=== PATIENT | male | born 1955 | race Caucasian/White ===

== ENCOUNTER 2019-06-23 12:01 | Outpatient (CLI) | payer OTHER, SELFPAY ==
[2019-06-23 16:03] LABS: Iron 108 ug/dL (49-181)
[2019-06-23 16:12] LABS: Percent Iron Saturation 31 % (20-50)
== END 2019-06-23 12:02 | disposition home or self-care (01) ==
LOC: ANHLAB 12:03
PROVIDERS: PCP Internal Medicine; Visit Provider Internal Medicine Hematology & Oncology
DX: E83.110 Hereditary hemochromatosis (principal)
CPT/HCPCS: 36415; 82728; 83540; 83550

== ENCOUNTER 2019-11-25 11:13 | Outpatient (CLI) | payer OTHER, SELFPAY ==
[2019-11-25 11:50] LABS: Hematocrit 44.3 % (42.0-52.0); Mean Corpuscular HGB Conc 33.9 g/dl (32-36); Mean Corpuscular Volume 94.5 fl (80-100); Mean Platelet Volume 10.9 fl (7.4-10.4); Platelet Count Result 158 k/mm3 (150-375); Red Blood Count 4.69 M/mm3 (4.6-6.20); Red Cell Distribution Width 12.5 % (11.5-14.5); White Blood Count 5.4 K/mm3 (4.5-10.0)
[2019-11-25 12:04] LABS: Alanine Aminotransferase 19 U/L (4-50); Albumin Level 4.6 g/dL (3.5-5.1); Alkaline Phosphatase 67 U/L (38-126); Aspartate Amino Transferase 26 U/L (17-59); Bilirubin,Total 0.6 mg/dL (0.2-1.3); Blood Urea Nitrogen 14 mg/dL (9-20); Calcium 9.2 mg/dL (8.4-10.2); Carbon Dioxide 31 mmol/L (22-30); Chloride 98 mmol/L (98-107); Cholesterol 147 mg/dL (0-200); Estimated Glomerular Filt Rate > 60; Glucose 104 mg/dL (75-110); HDL Direct 46 mg/dL; Potassium 4.5 mmol/L (3.4-5.0); Sodium 137 mmol/L (137-145); Triglycerides 137 mg/dL (<150)
[2019-11-25 12:14] LABS: LDL Cholesterol Direct 32 mg/dL
[2019-11-25 12:27] LABS: Iron 177 ug/dL (49-181)
[2019-11-25 12:33] LABS: Prostate Specific Antigen 0.6 ng/mL (< OR = 4.0)
[2019-11-25 12:36] LABS: Percent Iron Saturation 51 % (20-50)
[2019-11-29 15:07] LABS: Testosterone Free 50.3 pg/mL (35.0-155.0); Testosterone Total 419 ng/dL (250-1100)
== END 2019-11-25 11:14 | disposition home or self-care (01) ==
PROVIDERS: PCP Internal Medicine; Visit Provider Nurse Practitioner
DX: E34.9 Endocrine disorder, unspecified (principal); E78.5 Hyperlipidemia, unspecified; D50.9 Iron deficiency anemia, unspecified; Z12.5 Encounter for screening for malignant neoplasm of prostate
CPT/HCPCS: 36415; 80053; 80061; 83540; 83550; 84153; 84402; 84403; 85027

== ENCOUNTER 2020-03-16 08:56 | Outpatient (CLI) | payer OTHER, SELFPAY ==
[2020-03-16 09:13] LABS: Basophils Percent Auto 0.7 % (0.2-1.2); Eosinophils Absolute Auto 0.2 K/mm3 (0-0.3); Eosinophils Percent Auto 2.7 % (0-4.4); Hematocrit 41.7 % (42.0-52.0); Hemoglobin 14.1 g/dL (14.0-18.0); Immature Granulocyte Absolute 0.03 K/mm3 (0.00-0.031); Immature Granulocyte Percent A 0.5 % (0-0.5); Lymphocytes Absolute Auto 1.58 K/mm3 (0.9-3.2); Lymphocytes Percent Auto 28.3 % (18.3-44.2); Mean Corpuscular HGB Conc 33.8 g/dl (32-36); Mean Corpuscular Hemoglobin 31.3 pg (26-34); Mean Corpuscular Volume 92.7 fl (80-100); Mean Platelet Volume 10.5 fl (7.4-10.4); Monocytes Absolute Auto 0.8 K/mm3 (0.1-0.6); Neutrophils Percent Auto 53.8 % (45.5-73.1); Platelet Count Result 155 k/mm3 (150-375); Red Cell Distribution Width 12.4 % (11.5-14.5); White Blood Count 5.6 K/mm3 (4.5-10.0)
[2020-03-16 11:40] LABS: Iron 156 ug/dL (49-181)
[2020-03-16 11:44] LABS: Alanine Aminotransferase 18 U/L (4-50); Albumin Level 4.2 g/dL (3.5-5.1); Alkaline Phosphatase 70 U/L (38-126); Anion Gap 6 mmol/L (8-16); Aspartate Amino Transferase 27 U/L (17-59); Bilirubin,Total 0.7 mg/dL (0.2-1.3); Blood Urea Nitrogen 12 mg/dL (9-20); Calcium 9.4 mg/dL (8.4-10.2); Carbon Dioxide 32 mmol/L (22-30); Chloride 101 mmol/L (98-107); Estimated Glomerular Filt Rate > 60; Glucose 100 mg/dL (75-110); Potassium 4.3 mmol/L (3.4-5.0); Sodium 139 mmol/L (137-145)
[2020-03-16 11:49] LABS: Percent Iron Saturation 44 % (20-50)
== END 2020-03-16 08:57 | disposition home or self-care (01) ==
LOC: ANHLAB 08:58
PROVIDERS: PCP Internal Medicine; Visit Provider Internal Medicine Hematology & Oncology
DX: E83.110 Hereditary hemochromatosis (principal)
CPT/HCPCS: 36415; 80053; 82728; 83540; 83550; 85025

== ENCOUNTER 2020-05-22 10:00 | Outpatient (CLI) | payer OTHER, SELFPAY ==
[2020-05-22 10:57] LABS: Anion Gap 7 mmol/L (8-16); Blood Urea Nitrogen 15 mg/dL (9-20); Carbon Dioxide 32 mmol/L (22-30); Chloride 100 mmol/L (98-107); Estimated Glomerular Filt Rate > 60; Glucose 99 mg/dL (75-110); Potassium 4.1 mmol/L (3.4-5.0); Sodium 139 mmol/L (137-145)
[2020-05-25 11:09] LABS: Testosterone Total 502 ng/dL (250-1100)
== END 2020-05-22 10:01 | disposition home or self-care (01) ==
PROVIDERS: PCP Internal Medicine; Visit Provider Internal Medicine
DX: I10 Essential (primary) hypertension (principal); E29.1 Testicular hypofunction
CPT/HCPCS: 36415; 80048; 84403

== ENCOUNTER 2020-07-27 10:48 | Outpatient (CLI) | payer OTHER, SELFPAY ==
[2020-07-27 11:38] LABS: Alanine Aminotransferase 17 U/L (4-50); Albumin Level 4.2 g/dL (3.5-5.1); Alkaline Phosphatase 57 U/L (38-126); Anion Gap 1 mmol/L (8-16); Aspartate Amino Transferase 27 U/L (17-59); Bilirubin,Total 0.7 mg/dL (0.2-1.3); Blood Urea Nitrogen 10 mg/dL (9-20); Calcium 9.1 mg/dL (8.4-10.2); Carbon Dioxide 35 mmol/L (22-30); Chloride 103 mmol/L (98-107); Cholesterol 138 mg/dL (0-200); Estimated Glomerular Filt Rate > 60; Glucose 93 mg/dL (75-110); HDL Direct 48 mg/dL; Potassium 4.2 mmol/L (3.4-5.0); Sodium 139 mmol/L (137-145); Triglycerides 138 mg/dL (<150)
[2020-07-27 11:49] LABS: LDL Cholesterol Direct 32 mg/dL
[2020-07-27 12:08] LABS: Prostate Specific Antigen 0.6 ng/mL (< OR = 4.0)
[2020-07-31 11:04] LABS: Testosterone Free 54.4 pg/mL (46.0-224.0); Testosterone Total 583 ng/dL (250-1100)
[2020-07-31 14:45] LABS: Testosterone Free 64.9 pg/mL (35.0-155.0); Testosterone Total 519 ng/dL (250-1100)
== END 2020-07-27 10:49 | disposition home or self-care (01) ==
LOC: ANHLAB 10:51
PROVIDERS: PCP Internal Medicine; Visit Provider Nurse Practitioner
DX: E29.1 Testicular hypofunction (principal); E78.2 Mixed hyperlipidemia; F32.9 Major depressive disorder, single episode, unspecified; E34.9 Endocrine disorder, unspecified; Z12.5 Encounter for screening for malignant neoplasm of prostate
CPT/HCPCS: 36415; 80053; 80061; 84153; 84402; 84403; 84443; G0103

== ENCOUNTER 2020-07-29 11:34 | Outpatient (CLI) | payer OTHER, SELFPAY | END 2020-07-29 11:35 | disposition home or self-care (01) | PROVIDERS: PCP Internal Medicine; Visit Provider Internal Medicine | DX: R19.7 Diarrhea, unspecified (principal) | CPT/HCPCS: 87045; 87046; 87324; 87427 ==

== ENCOUNTER 2020-09-13 10:26 | Outpatient (CLI) | payer OTHER, SELFPAY ==
[2020-09-13 10:40] LABS: Basophils Percent Auto 0.6 % (0.2-1.2); Eosinophils Absolute Auto 0.2 K/mm3 (0-0.3); Eosinophils Percent Auto 3.1 % (0-4.4); Hematocrit 42.8 % (42.0-52.0); Hemoglobin 14.2 g/dL (14.0-18.0); Immature Granulocyte Absolute 0.03 K/mm3 (0.00-0.031); Immature Granulocyte Percent A 0.6 % (0-0.5); Lymphocytes Absolute Auto 1.41 K/mm3 (0.9-3.2); Lymphocytes Percent Auto 27.6 % (18.3-44.2); Mean Corpuscular HGB Conc 33.2 g/dl (32-36); Mean Corpuscular Hemoglobin 31.4 pg (26-34); Mean Corpuscular Volume 94.7 fl (80-100); Mean Platelet Volume 10.8 fl (7.4-10.4); Monocytes Absolute Auto 0.7 K/mm3 (0.1-0.6); Monocytes Percent Auto 13.3 % (2.6-8.5); Neutrophils Absolute Auto 2.8 K/mm3 (1.3-6.7); Neutrophils Percent Auto 54.8 % (45.5-73.1); Platelet Count Result 158 k/mm3 (150-375); Red Blood Count 4.52 M/mm3 (4.6-6.20); Red Cell Distribution Width 12.6 % (11.5-14.5); White Blood Count 5.1 K/mm3 (4.5-10.0)
[2020-09-13 16:37] LABS: Iron 128 ug/dL (49-181)
[2020-09-13 16:38] LABS: Alanine Aminotransferase 18 U/L (4-50); Albumin Level 4.5 g/dL (3.5-5.1); Alkaline Phosphatase 66 U/L (38-126); Anion Gap 5 mmol/L (8-16); Aspartate Amino Transferase 26 U/L (17-59); Bilirubin,Total 0.5 mg/dL (0.2-1.3); Blood Urea Nitrogen 13 mg/dL (9-20); Calcium 9.1 mg/dL (8.4-10.2); Carbon Dioxide 31 mmol/L (22-30); Chloride 102 mmol/L (98-107); Estimated Glomerular Filt Rate > 60; Glucose 104 mg/dL (75-110); Potassium 4.4 mmol/L (3.4-5.0); Sodium 138 mmol/L (137-145)
[2020-09-13 16:51] LABS: Percent Iron Saturation 35 % (20-50)
== END 2020-09-13 10:27 | disposition home or self-care (01) ==
LOC: ANHLAB 10:28
PROVIDERS: PCP Internal Medicine; Visit Provider Internal Medicine Hematology & Oncology
DX: E83.110 Hereditary hemochromatosis (principal)
CPT/HCPCS: 36415; 80053; 82728; 83540; 83550; 85025

== ENCOUNTER 2021-01-15 10:42 | Outpatient (CLI) | payer OTHER, SELFPAY ==
[2021-01-15 11:40] LABS: Anion Gap 4 mmol/L (8-16); Blood Urea Nitrogen 13 mg/dL (9-20); Calcium 8.7 mg/dL (8.4-10.2); Carbon Dioxide 29 mmol/L (22-30); Chloride 104 mmol/L (98-107); Cholesterol 132 mg/dL (0-200); Estimated Glomerular Filt Rate > 60; Glucose 96 mg/dL (65-110); HDL Direct 52 mg/dL; Potassium 4.3 mmol/L (3.4-5.0); Sodium 137 mmol/L (137-145); Triglycerides 73 mg/dL (<150)
[2021-01-15 11:52] LABS: LDL Cholesterol Direct 30 mg/dL
[2021-01-19 11:01] LABS: Testosterone Total 500 ng/dL (250-1100)
== END 2021-01-15 10:43 | disposition home or self-care (01) ==
PROVIDERS: PCP Internal Medicine; Visit Provider Internal Medicine
DX: E29.1 Testicular hypofunction (principal); I10 Essential (primary) hypertension
CPT/HCPCS: 36415; 80048; 80061; 84403

== ENCOUNTER → 2021-03-30 04:18 | Outpatient (CLI) | payer OTHER, SELFPAY ==
[2021-03-30 17:24] LABS: SARS-CoV-2 RNA PCR Negative
== END ==
PROVIDERS: PCP Internal Medicine; Visit Provider Nurse Practitioner
DX: R68.89 Other general symptoms and signs (principal); Z20.822 Contact with and (suspected) exposure to COVID-19
CPT/HCPCS: C9803; U0003; U0005

== ENCOUNTER 2021-08-24 11:53 | Outpatient (CLI) | payer OTHER, SELFPAY ==
[2021-08-24 12:13] LABS: Basophils Percent Auto 0.5 % (0.2-1.2); Eosinophils Absolute Auto 0.2 K/mm3 (0-0.3); Eosinophils Percent Auto 2.6 % (0-4.4); Hematocrit 44.4 % (42.0-52.0); Hemoglobin 14.6 g/dL (14.0-18.0); Immature Granulocyte Absolute 0.04 K/mm3 (0.00-0.031); Immature Granulocyte Percent A 0.7 % (0-0.5); Lymphocytes Absolute Auto 1.11 K/mm3 (0.9-3.2); Lymphocytes Percent Auto 18.1 % (18.3-44.2); Mean Corpuscular HGB Conc 32.9 g/dl (32-36); Mean Corpuscular Hemoglobin 31.6 pg (26-34); Mean Corpuscular Volume 96.1 fl (80-100); Mean Platelet Volume 10.9 fl (7.4-10.4); Monocytes Absolute Auto 0.8 K/mm3 (0.1-0.6); Monocytes Percent Auto 12.4 % (2.6-8.5); Neutrophils Percent Auto 65.7 % (45.5-73.1); Platelet Count Result 160 k/mm3 (150-375); Red Blood Count 4.62 M/mm3 (4.6-6.20); Red Cell Distribution Width 12.7 % (11.5-14.5); White Blood Count 6.1 K/mm3 (4.5-10.0)
[2021-08-24 12:26] LABS: Alanine Aminotransferase 19 U/L (4-50); Albumin Level 4.5 g/dL (3.5-5.1); Alkaline Phosphatase 72 U/L (38-126); Anion Gap 6 mmol/L (8-16); Aspartate Amino Transferase 34 U/L (17-59); Bilirubin,Total 0.7 mg/dL (0.2-1.3); Blood Urea Nitrogen 16 mg/dL (9-20); Calcium 8.9 mg/dL (8.4-10.2); Carbon Dioxide 31 mmol/L (22-30); Chloride 103 mmol/L (98-107); Estimated Glomerular Filt Rate > 60; Glucose 99 mg/dL (65-110); Potassium 4.3 mmol/L (3.4-5.0); Sodium 140 mmol/L (137-145)
[2021-08-24 12:56] LABS: Prostate Specific Antigen 0.7 ng/mL (< OR = 4.0)
[2021-08-29 01:11] LABS: Testosterone Total 598 ng/dL (250-1100)
== END 2021-08-24 11:54 | disposition home or self-care (01) ==
LOC: ANHLAB 11:54
PROVIDERS: PCP Internal Medicine; Visit Provider Internal Medicine
DX: E29.1 Testicular hypofunction (principal); I10 Essential (primary) hypertension; Z12.5 Encounter for screening for malignant neoplasm of prostate; D50.9 Iron deficiency anemia, unspecified
CPT/HCPCS: 36415; 80053; 82728; 84153; 84403; 85025; G0103

== ENCOUNTER 2021-09-14 10:32 | Outpatient (CLI) | payer OTHER, SELFPAY ==
[2021-09-14 11:04] LABS: Basophils Percent Auto 0.6 % (0.2-1.2); Eosinophils Absolute Auto 0.2 K/mm3 (0-0.3); Eosinophils Percent Auto 3.2 % (0-4.4); Hematocrit 43.4 % (42.0-52.0); Hemoglobin 13.9 g/dL (14.0-18.0); Immature Granulocyte Absolute 0.03 K/mm3 (0.00-0.031); Immature Granulocyte Percent A 0.6 % (0-0.5); Lymphocytes Absolute Auto 1.23 K/mm3 (0.9-3.2); Lymphocytes Percent Auto 23.3 % (18.3-44.2); Mean Corpuscular Hemoglobin 31.7 pg (26-34); Mean Corpuscular Volume 99.1 fl (80-100); Mean Platelet Volume 10.9 fl (7.4-10.4); Monocytes Absolute Auto 0.7 K/mm3 (0.1-0.6); Monocytes Percent Auto 13.6 % (2.6-8.5); Neutrophils Absolute Auto 3.1 K/mm3 (1.3-6.7); Neutrophils Percent Auto 58.7 % (45.5-73.1); Platelet Count Result 172 k/mm3 (150-375); Red Blood Count 4.38 M/mm3 (4.6-6.20); Red Cell Distribution Width 12.4 % (11.5-14.5); White Blood Count 5.3 K/mm3 (4.5-10.0)
[2021-09-14 14:20] LABS: Iron 161 ug/dL (49-181)
[2021-09-14 14:29] LABS: Alanine Aminotransferase 18 U/L (4-50); Albumin Level 4.6 g/dL (3.5-5.1); Alkaline Phosphatase 67 U/L (38-126); Anion Gap 7 mmol/L (8-16); Aspartate Amino Transferase 27 U/L (17-59); Bilirubin,Total 0.5 mg/dL (0.2-1.3); Blood Urea Nitrogen 14 mg/dL (9-20); Calcium 8.9 mg/dL (8.4-10.2); Carbon Dioxide 28 mmol/L (22-30); Chloride 103 mmol/L (98-107); Estimated Glomerular Filt Rate > 60; Glucose 94 mg/dL (65-110); Potassium 3.9 mmol/L (3.4-5.0); Sodium 138 mmol/L (137-145)
[2021-09-14 14:36] LABS: Percent Iron Saturation 44 % (20-50)
== END 2021-09-14 10:33 | disposition home or self-care (01) ==
LOC: ANHLAB 10:34
PROVIDERS: PCP Internal Medicine; Visit Provider Internal Medicine Hematology & Oncology
DX: E83.110 Hereditary hemochromatosis (principal)
CPT/HCPCS: 36415; 80053; 82728; 83540; 83550; 85025

== ENCOUNTER 2022-03-14 11:14 | Outpatient (CLI) | payer MEDICARE, SELFPAY ==
[2022-03-14 11:48] LABS: Basophils Percent Auto 0.6 % (0.2-1.2); Eosinophils Absolute Auto 0.1 K/mm3 (0-0.3); Eosinophils Percent Auto 2.8 % (0-4.4); Hematocrit 41.4 % (42.0-52.0); Hemoglobin 13.9 g/dL (14.0-18.0); Immature Granulocyte Absolute 0.03 K/mm3 (0.00-0.031); Immature Granulocyte Percent A 0.6 % (0-0.5); Lymphocytes Absolute Auto 1.05 K/mm3 (0.9-3.2); Mean Corpuscular HGB Conc 33.6 g/dl (32-36); Mean Corpuscular Hemoglobin 31.5 pg (26-34); Mean Corpuscular Volume 93.9 fl (80-100); Mean Platelet Volume 10.7 fl (7.4-10.4); Monocytes Absolute Auto 0.7 K/mm3 (0.1-0.6); Neutrophils Absolute Auto 3.1 K/mm3 (1.3-6.7); Platelet Count Result 143 k/mm3 (150-375); Red Blood Count 4.41 M/mm3 (4.6-6.20); Red Cell Distribution Width 12.8 % (11.5-14.5)
[2022-03-14 11:59] LABS: Alanine Aminotransferase 24 U/L (6-50); Albumin Level 4.5 g/dL (3.5-5.1); Alkaline Phosphatase 77 U/L (38-126); Anion Gap 7 mmol/L (8-16); Aspartate Amino Transferase 33 U/L (17-59); Bilirubin,Total 0.7 mg/dL (0.2-1.3); Blood Urea Nitrogen 14 mg/dL (9-20); Calcium 8.8 mg/dL (8.4-10.2); Carbon Dioxide 29 mmol/L (22-30); Chloride 100 mmol/L (98-107); Cholesterol 126 mg/dL (0-200); Estimated Glomerular Filt Rate > 60; Glucose 102 mg/dL (65-110); HDL Direct 48 mg/dL; Potassium 4.5 mmol/L (3.4-5.0); Sodium 136 mmol/L (137-145); Triglycerides 79 mg/dL (<150)
[2022-03-14 13:01] LABS: LDL Cholesterol Direct < 30 mg/dL
[2022-03-18 08:50] LABS: Testosterone Total 454 ng/dL (250-1100)
== END 2022-03-14 11:15 | disposition home or self-care (01) ==
PROVIDERS: PCP Internal Medicine; Visit Provider Internal Medicine
DX: E78.2 Mixed hyperlipidemia (principal); I10 Essential (primary) hypertension; E83.110 Hereditary hemochromatosis; E34.9 Endocrine disorder, unspecified; E78.5 Hyperlipidemia, unspecified
CPT/HCPCS: 36415; 80053; 80061; 84403; 85025

== ENCOUNTER 2022-09-19 10:29 | Outpatient (CLI) | payer MEDICARE, SELFPAY ==
[2022-09-19 11:30] LABS: Alanine Aminotransferase 24 U/L (6-50); Albumin Level 4.5 g/dL (3.5-5.1); Alkaline Phosphatase 69 U/L (38-126); Anion Gap 3 mmol/L (8-16); Aspartate Amino Transferase 29 U/L (17-59); Bilirubin,Total 0.7 mg/dL (0.2-1.3); Blood Urea Nitrogen 14 mg/dL (9-20); Calcium 8.9 mg/dL (8.4-10.2); Carbon Dioxide 33 mmol/L (22-30); Chloride 101 mmol/L (98-107); Cholesterol 141 mg/dL (0-200); Estimated Glomerular Filt Rate > 60; Glucose 98 mg/dL (65-110); HDL Direct 46 mg/dL; Potassium 4.5 mmol/L (3.4-5.0); Sodium 137 mmol/L (137-145); Triglycerides 124 mg/dL (<150)
[2022-09-19 11:41] LABS: LDL Cholesterol Direct 39 mg/dL
[2022-09-19 11:59] LABS: Prostate Specific Antigen 0.7 ng/mL (< OR = 4.0)
[2022-09-24 11:06] LABS: Testosterone Total 471 ng/dL (250-1100)
== END 2022-09-19 10:30 | disposition home or self-care (01) ==
PROVIDERS: PCP Internal Medicine; Visit Provider Internal Medicine
DX: Z12.5 Encounter for screening for malignant neoplasm of prostate (principal); E29.1 Testicular hypofunction; I10 Essential (primary) hypertension
CPT/HCPCS: 36415; 80053; 80061; 84153; 84403; G0103

== ENCOUNTER 2022-11-01 10:29 | Outpatient (CLI) | payer MEDICARE, SELFPAY ==
[2022-11-01 10:40] LABS: Basophils Percent Auto 0.7 % (0.2-1.2); Eosinophils Absolute Auto 0.2 K/mm3 (0-0.3); Eosinophils Percent Auto 2.9 % (0-4.4); Hematocrit 43.5 % (42.0-52.0); Hemoglobin 14.5 g/dL (14.0-18.0); Immature Granulocyte Absolute 0.04 K/mm3 (0.00-0.031); Immature Granulocyte Percent A 0.7 % (0-0.5); Lymphocytes Absolute Auto 1.48 K/mm3 (0.9-3.2); Lymphocytes Percent Auto 26.4 % (18.3-44.2); Mean Corpuscular HGB Conc 33.3 g/dl (32-36); Mean Corpuscular Hemoglobin 31.6 pg (26-34); Mean Corpuscular Volume 94.8 fl (80-100); Mean Platelet Volume 10.3 fl (7.4-10.4); Monocytes Absolute Auto 0.8 K/mm3 (0.1-0.6); Monocytes Percent Auto 13.6 % (2.6-8.5); Neutrophils Absolute Auto 3.1 K/mm3 (1.3-6.7); Neutrophils Percent Auto 55.7 % (45.5-73.1); Platelet Count Result 179 k/mm3 (150-375); Red Blood Count 4.59 M/mm3 (4.6-6.20); Red Cell Distribution Width 12.3 % (11.5-14.5); White Blood Count 5.6 K/mm3 (4.5-10.0)
[2022-11-01 12:16] LABS: Iron 153 ug/dL (49-181)
[2022-11-01 12:27] LABS: Alanine Aminotransferase 26 U/L (6-50); Albumin Level 4.8 g/dL (3.5-5.1); Alkaline Phosphatase 69 U/L (38-126); Anion Gap 8 mmol/L (8-16); Aspartate Amino Transferase 31 U/L (17-59); Bilirubin,Total 0.7 mg/dL (0.2-1.3); Blood Urea Nitrogen 14 mg/dL (9-20); Calcium 8.9 mg/dL (8.4-10.2); Carbon Dioxide 28 mmol/L (22-30); Chloride 100 mmol/L (98-107); Estimated Glomerular Filt Rate > 60; Glucose 100 mg/dL (65-110); Percent Iron Saturation 41 % (20-50); Potassium 4.3 mmol/L (3.4-5.0); Sodium 136 mmol/L (137-145)
== END 2022-11-01 10:30 | disposition home or self-care (01) ==
LOC: ANHLAB 10:31
PROVIDERS: PCP Internal Medicine; Visit Provider Internal Medicine Hematology & Oncology
DX: E83.110 Hereditary hemochromatosis (principal)
CPT/HCPCS: 36415; 80053; 82728; 83540; 83550; 85025

== ENCOUNTER 2023-04-04 09:48 | Outpatient (CLI) | payer MEDICARE, SELFPAY ==
[2023-04-04 10:46] LABS: Alanine Aminotransferase 23 U/L (6-50); Albumin Level 4.5 g/dL (3.5-5.1); Alkaline Phosphatase 71 U/L (38-126); Anion Gap 8 mmol/L (8-16); Aspartate Amino Transferase 30 U/L (17-59); Bilirubin,Total 0.8 mg/dL (0.2-1.3); Blood Urea Nitrogen 12 mg/dL (9-20); Calcium 9.4 mg/dL (8.4-10.2); Carbon Dioxide 32 mmol/L (22-30); Chloride 99 mmol/L (98-107); Cholesterol 132 mg/dL (0-200); Estimated Glomerular Filt Rate > 60; Glucose 94 mg/dL (65-110); HDL Direct 45 mg/dL; Potassium 4.4 mmol/L (3.4-5.0); Sodium 139 mmol/L (137-145); Triglycerides 98 mg/dL (<150)
[2023-04-04 10:57] LABS: LDL Cholesterol Direct 40 mg/dL
[2023-04-08 10:51] LABS: Testosterone Total 557 ng/dL (250-1100)
== END 2023-04-04 09:49 | disposition home or self-care (01) ==
PROVIDERS: PCP Internal Medicine; Visit Provider Nurse Practitioner
DX: E78.5 Hyperlipidemia, unspecified (principal)
CPT/HCPCS: 36415; 80053; 80061; 84403

== ENCOUNTER 2023-07-16 00:52 | Day surgery (SDC) | payer MEDICARE, SELFPAY ==
[2023-05-08 15:49] VITALS: BMI 26.8
[2023-06-18 10:27] VITALS: BMI 26.8
--- NOTE | 2023-07-14 09:07 | SUR.PREOP ---
Patient called regarding upcoming procedure. Reviewed preop instructions, appointment times, and procedure prep.
--- NOTE | 2023-07-15 18:25 | PM.HPGS ---
History of Present Illness History of Present Illness Consent: Risks, benefits, and alternatives have been discussed and questions answered. Patient agrees to proceed with procedure. Chief complaint: neoplasm screening Narrative: Carlos Childs is a 68 year old male Referred for colon cancer screening. His last colonoscopy was 8 years ago. Review of Systems Review of Systems: All systems reviewed & are unremarkable except as noted in HPI and below PMFSH Past Medical History Medical History Ruptured shoulder tendon Screening for prostate cancer Surgical History Surgical History History of left shoulder replacement History of shoulder replacement Hx of tonsillectomy Family History Family History Other Carcinoma of colon Social History Social History Smoking status: Former smoker Tobacco type: cigars Second hand tobacco smoke exposure: No Additional smoking assessment comments: occasional cigar, twice a year Alcohol intake: current Alcohol use details: occasionally, socially Substance use: current Substance use type: does not use Other substance usage details: gummies Lack of Transportation: No Lack of Food: Never True Current Housing: I Have Housing Concerned About Future Housing: No Difficulty Paying Gas/Electric Bills: No Difficulty Paying for Meds: No Currently Unemployed: No Education: High School Diploma/GED Difficulty w/ Childcare or Family Care: No Living arrangements: with family Spiritual care concerns: No Meds Home Medications and Allergies Home Medications Medication Instructions Recorded Confirmed Type fluticasone furoate 200 1 inhalation inhalation DAILY 05/21/19 07/16/23 History mcg/actuation blister powder for inhalation (Arnuity Ellipta) albuterol sulfate 90 mcg/actuation 1 inh inhalation Q4H PRN shortness 09/24/22 07/16/23 Rx aerosol inhaler (ProAir HFA) of breath or wheezing #8.5 grams sildenafil 100 mg tablet 100 mg PO DAILY PRN sexual 09/24/22 07/16/23 Rx activity #30 tabs lisinopril 20 mg tablet 20 mg PO BID #180 tabs 01/15/23 07/16/23 Rx citalopram 20 mg tablet (Celexa) 20 mg PO DAILY #90 tabs 02/05/23 07/16/23 Rx clotrimazole-betamethasone 1 1 applic topical BID #45 grams 04/09/23 07/16/23 Rx %-0.05 % topical cream testosterone (AndroGel) 3 pump topical DAILY #300 grams 04/09/23 07/16/23 Rx [place]-3 Fish Oil 2,400 mg PO DAILY 06/18/23 07/16/23 History clonazepam 1 mg tablet 1 mg PO HS #90 tabs 07/09/23 07/16/23 Rx Allergies Allergy/AdvReac Type Severity Reaction Status Date / Time codeine Allergy Mild Rash Verified 07/16/23 09:15 Exam Resp: Auscultation: clear to auscultation bilaterally Cardio: Rate: regular rate Rhythm: regular rhythm GI: GI Palp: Yes Soft to palpation and No Tenderness to palpation present (GI) Assessment and Plan Assessment and plan (1) Colon cancer screening: Code(s): Z12.11 - Encounter for screening for malignant neoplasm of colon Status: Acute Assessment and Plan: Colonoscopy with possible biopsy or polypectomy or cautery or injection of substances.
[2023-07-16 09:08] VITALS: BP 139/92; PULSE 89; RESP 18; TEMP 36.8; O2SAT 100; BMI 26.6
[2023-07-16] MEDS: LACTATED RINGERS 1,000 ML 150 ML IV CONT (09:25)
--- NOTE | 2023-07-16 09:32 | WPDANESEPPF ---
Anes - Initial Pre Proc Eval Procedure: Operation Date: 07/16/23 10:30 Proposed Procedures p Screening Colonoscopy - Arnoldo Nuñez MD Date/Time: 07/16/23 09:32 Surgeon: Arnoldo Nuñez MD Pre Op Diagnosis: neoplasm screening Patient Data Age: 68 Gender: M Height: 1.93 m Weight: 99.4 kg Last Vital Signs Temp 98.3 F 07/16/23 09:08 Pulse 89 07/16/23 09:08 Resp 18 07/16/23 09:08 BP 139/92 H 07/16/23 09:08 Pulse Ox 100 07/16/23 09:08 O2 Del Method Room Air 07/16/23 09:08 Allergies Allergy/AdvReac Type Severity Reaction Status Date / Time codeine Allergy Mild Rash Verified 07/16/23 09:15 Home Medications Medication Instructions Recorded Confirmed Type fluticasone furoate 200 1 inhalation inhalation DAILY 05/21/19 07/16/23 History mcg/actuation blister powder for inhalation (Arnuity Ellipta) albuterol sulfate 90 mcg/actuation 1 inh inhalation Q4H PRN shortness 09/24/22 07/16/23 Rx aerosol inhaler (ProAir HFA) of breath or wheezing #8.5 grams sildenafil 100 mg tablet 100 mg PO DAILY PRN sexual 09/24/22 07/16/23 Rx activity #30 tabs lisinopril 20 mg tablet 20 mg PO BID #180 tabs 01/15/23 07/16/23 Rx citalopram 20 mg tablet (Celexa) 20 mg PO DAILY #90 tabs 02/05/23 07/16/23 Rx clotrimazole-betamethasone 1 1 applic topical BID #45 grams 04/09/23 07/16/23 Rx %-0.05 % topical cream testosterone (AndroGel) 3 pump topical DAILY #300 grams 04/09/23 07/16/23 Rx [place]-3 Fish Oil 2,400 mg PO DAILY 06/18/23 07/16/23 History clonazepam 1 mg tablet 1 mg PO HS #90 tabs 07/09/23 07/16/23 Rx Patient hx anesthesia problems: none Family hx anesthesia problems: none Results Review: All pre-operative results and documents have been reviewed as part of the pre-operative evaluation. [facility] Past Medical History Medical History Ruptured shoulder tendon Screening for prostate cancer Surgical History Surgical History History of left shoulder replacement History of shoulder replacement Hx of tonsillectomy Family History Family History Other Carcinoma of colon Social History Social History Smoking status: Former smoker Tobacco type: cigars Second hand tobacco smoke exposure: No Additional smoking assessment comments: occasional cigar, twice a year Alcohol intake: current Alcohol use details: occasionally, socially Substance use: current Substance use type: does not use Other substance usage details: gabrielamies Lack of Transportation: No Lack of Food: Never True Current Housing: I Have Housing Concerned About Future Housing: No Difficulty Paying Gas/Electric Bills: No Difficulty Paying for Meds: No Currently Unemployed: No Education: High School Diploma/GED Difficulty w/ Childcare or Family Care: No Living arrangements: with family Spiritual care concerns: No Anes - Eval Final PreProcedure Day of Procedure 07/16/23 09:32 Patient weight: normal Heart: regular rate and rhythm Lungs: clear to auscultation Airway: Mallampati scale class II Neurological: alert and oriented Last oral intake: >/= 8 hours ASA classification: II Emergent: no Anesthetic plan: proceed Anesthesia type and monitoring: general GIVS and standard monitoring Results Review: All pre-operative results and documents have been reviewed as part of the pre-operative evaluation. Informed Consent: The patient's anesthetic plan and its attendant risks and benefits were discussed with the patient/family/POA. Questions were solicited and answers provided to the satisfaction of the patient/family/POA.
[2023-07-16 10:55] VITALS: BP 101/70; PULSE 73; RESP 21; O2SAT 95
[2023-07-16 11:05] VITALS: BP 110/72; PULSE 74; RESP 15; O2SAT 97
[2023-07-16 11:15] VITALS: BP 130/86; PULSE 80; RESP 16; O2SAT 98
== END 2023-07-16 11:26 | disposition home or self-care (01) ==
PROVIDERS: PCP Family Medicine; Visit Provider Internal Medicine Gastroenterology
PROC: 0DJD8ZZ Inspection of Lower Intestinal Tract, Via Natural or Artificial Opening Endoscopic (ICD-10-PCS; CPT 45378; principal; 2023-07-16 10:30)
DX: Z12.11 Encounter for screening for malignant neoplasm of colon (principal); K57.30 Diverticulosis of large intestine without perforation or abscess without bleeding; K64.8 Other hemorrhoids; Z87.891 Personal history of nicotine dependence
CPT/HCPCS: G0121; J2704; J7120

== ENCOUNTER 2023-10-14 11:50 | Outpatient (CLI) | payer MEDICARE, SELFPAY ==
[2023-10-14 13:15] LABS: Appearance Urine Clear (Clear); Bacteria Urine 2+ /hpf; Bilirubin Urine Negative (Negative); Blood Urine Negative (Negative); Color Urine Yellow (Yellow); Glucose Urine UA Negative (Negative); Ketones Urine Negative (Negative); Leukocyte Esterase Ur 2+ LEU/UL (Negative); Nitrate Urine Negative (Negative); Non Pathogenic Casts 0-2; Protein Urine 1+ mg/dL (Negative); RBC Urine 0-2 /hpf (0-2); Specific Grav Ur 1.019 (1.001-1.035); Squamous Epithelial Cell Urine None Seen /hpf (Few); WBC Urine 51-100 /hpf (0-3); pH Urine 6.5 (5.0-9.0)
[2023-10-14 14:35] LABS: Add Urine Microscopic? YES
== END 2023-10-14 11:51 | disposition home or self-care (01) ==
LOC: ANHLAB 11:53
PROVIDERS: PCP Family Medicine; Visit Provider Nurse Practitioner
DX: R30.0 Dysuria (principal)
CPT/HCPCS: 81001; 87077; 87086; 87088; 87181

== ENCOUNTER 2023-10-29 10:58 | Outpatient (CLI) | payer MEDICARE, SELFPAY ==
[2023-10-29 11:42] LABS: Hematocrit 43.7 % (42.0-52.0); Hemoglobin 14.4 g/dL (14.0-18.0); Mean Corpuscular Volume 94.2 fl (80-100); Mean Platelet Volume 10.6 fl (7.4-10.4); Platelet Count Result 213 k/mm3 (150-375); Red Blood Count 4.64 M/mm3 (4.6-6.20); Red Cell Distribution Width 12.6 % (11.5-14.5); White Blood Count 5.7 K/mm3 (4.5-10.0)
[2023-10-29 11:56] LABS: Alanine Aminotransferase 18 U/L (6-50); Albumin Level 4.4 g/dL (3.5-5.1); Alkaline Phosphatase 72 U/L (38-126); Anion Gap 5 mmol/L (4-12); Aspartate Amino Transferase 29 U/L (17-59); Bilirubin,Total 0.6 mg/dL (0.2-1.3); Blood Urea Nitrogen 18 mg/dL (9-20); Calcium 9.3 mg/dL (8.4-10.2); Carbon Dioxide 29 mmol/L (22-30); Chloride 101 mmol/L (98-107); Cholesterol 150 mg/dL (0-200); Estimated Glomerular Filt Rate > 60; Glucose 93 mg/dL (65-110); HDL Direct 47 mg/dL; Potassium 4.3 mmol/L (3.4-5.0); Sodium 135 mmol/L (137-145); Triglycerides 134 mg/dL (<150)
[2023-10-29 12:04] LABS: Iron 113 ug/dL (49-181)
[2023-10-29 12:08] LABS: LDL Cholesterol Direct 49 mg/dL
[2023-10-29 12:15] LABS: Percent Iron Saturation 34 % (20-50)
[2023-10-29 12:24] LABS: Prostate Specific Antigen 6.9 ng/mL (< OR = 4.0)
[2023-11-02 11:48] LABS: Testosterone Free 62.1 pg/mL (35.0-155.0); Testosterone Total 502 ng/dL (250-1100)
== END 2023-10-29 10:59 | disposition home or self-care (01) ==
PROVIDERS: PCP Family Medicine; Visit Provider Family Medicine
DX: Z12.5 Encounter for screening for malignant neoplasm of prostate (principal); E34.9 Endocrine disorder, unspecified; E78.2 Mixed hyperlipidemia; E83.110 Hereditary hemochromatosis; F32.9 Major depressive disorder, single episode, unspecified; F41.9 Anxiety disorder, unspecified; G47.00 Insomnia, unspecified; G47.10 Hypersomnia, unspecified; I10 Essential (primary) hypertension; J45.909 Unspecified asthma, uncomplicated; R53.82 Chronic fatigue, unspecified; T14.8XXA Other injury of unspecified body region, initial encounter; R79.89 Other specified abnormal findings of blood chemistry; X58.XXXA Exposure to other specified factors, initial encounter
CPT/HCPCS: 36415; 80053; 80061; 82728; 83540; 83550; 84153; 84402; 84403; 85027; G0103

== ENCOUNTER 2023-11-04 09:15 | Outpatient (CLI) | payer MEDICARE, SELFPAY ==
[2023-11-04 09:38] LABS: Basophils Percent Auto 0.6 % (0.2-1.2); Eosinophils Absolute Auto 0.1 K/mm3 (0-0.3); Eosinophils Percent Auto 2.7 % (0-4.4); Hematocrit 40.4 % (42.0-52.0); Hemoglobin 13.5 g/dL (14.0-18.0); Immature Granulocyte Absolute 0.03 K/mm3 (0.00-0.031); Immature Granulocyte Percent A 0.6 % (0-0.5); Lymphocytes Percent Auto 25.3 % (18.3-44.2); Mean Corpuscular HGB Conc 33.4 g/dl (32-36); Mean Corpuscular Hemoglobin 31.3 pg (26-34); Mean Corpuscular Volume 93.5 fl (80-100); Mean Platelet Volume 10.3 fl (7.4-10.4); Monocytes Absolute Auto 0.8 K/mm3 (0.1-0.6); Monocytes Percent Auto 16.5 % (2.6-8.5); Neutrophils Absolute Auto 2.6 K/mm3 (1.3-6.7); Neutrophils Percent Auto 54.3 % (45.5-73.1); Platelet Count Result 170 k/mm3 (150-375); Red Blood Count 4.32 M/mm3 (4.6-6.20); Red Cell Distribution Width 12.6 % (11.5-14.5); White Blood Count 4.7 K/mm3 (4.5-10.0)
[2023-11-04 10:21] LABS: Iron 96 ug/dL (49-181)
[2023-11-04 10:26] LABS: Alanine Aminotransferase 18 U/L (6-50); Albumin Level 4.3 g/dL (3.5-5.1); Alkaline Phosphatase 76 U/L (38-126); Anion Gap 6 mmol/L (4-12); Aspartate Amino Transferase 24 U/L (17-59); Bilirubin,Total 0.6 mg/dL (0.2-1.3); Blood Urea Nitrogen 16 mg/dL (9-20); Calcium 9.1 mg/dL (8.4-10.2); Carbon Dioxide 30 mmol/L (22-30); Chloride 101 mmol/L (98-107); Estimated Glomerular Filt Rate > 60; Glucose 97 mg/dL (65-110); Sodium 137 mmol/L (137-145)
[2023-11-04 10:33] LABS: Percent Iron Saturation 30 % (20-50)
== END 2023-11-04 09:16 | disposition home or self-care (01) ==
LOC: ANHLAB 09:17
PROVIDERS: PCP Family Medicine; Visit Provider Internal Medicine Hematology & Oncology
DX: E83.110 Hereditary hemochromatosis (principal)
CPT/HCPCS: 36415; 80053; 82728; 83540; 83550; 85025

== ENCOUNTER 2023-11-24 10:06 | Outpatient (CLI) | payer MEDICARE, SELFPAY ==
[2023-11-24 12:06] LABS: Prostate Specific Antigen 3.1 ng/mL (< OR = 4.0)
== END 2023-11-24 10:07 | disposition home or self-care (01) ==
LOC: ANHLAB 10:08
PROVIDERS: PCP Family Medicine; Visit Provider Family Medicine
DX: R97.20 Elevated prostate specific antigen [PSA] (principal); Z12.5 Encounter for screening for malignant neoplasm of prostate
CPT/HCPCS: 36415; 84153; G0103

== ENCOUNTER 2024-01-13 10:49 | Outpatient (CLI) | payer MEDICARE, SELFPAY ==
--- NOTE | ~2024-01-13 | XR_ITS ---
XR knee RT min 4V Ordering provider: Cheryl Bartlett APRN History: . no injury posterior knee mass with pain . Comparison: None. FINDINGS: BONES: No acute fracture or dislocation. JOINT SPACES: Marginal osteophytes in the knee and patella. Narrowing of the lateral compartment. SOFT TISSUES: Normal. IMPRESSION: No acute osseous abnormality right knee. Mild to Moderate osteoarthritic changes. Reviewed, dictated and finalized at location A.
--- NOTE | ~2024-01-13 | XR_ITS ---
XR knee LT min 4V Ordering provider: Cheryl Bartlett APRN History: . injury 01-02-24 pain on lateral side with popping . Comparison: August 22, 2014 FINDINGS: BONES: No acute fracture or dislocation. Exostosis seen in the proximal fibula. JOINT SPACES: Narrowing of the lateral compartment. Marginal spurs in the patella. SOFT TISSUES: Normal. IMPRESSION: No acute osseous abnormality left knee. Mild osteoarthritic changes. Reviewed, dictated and finalized at location A.
== END 2024-01-13 10:50 ==
LOC: MICIMG 10:51
PROVIDERS: PCP Family Medicine; Visit Provider Nurse Practitioner Family
DX: M17.0 Bilateral primary osteoarthritis of knee (principal)
CPT/HCPCS: 73564

== ENCOUNTER 2024-01-24 09:09 | Outpatient (CLI) | payer MEDICARE, SELFPAY ==
--- NOTE | ~2024-01-24 | MR_ITS ---
EXAMINATION: MR knee LT wo con DATE: 01/24/2024 10:42 INDICATION: Left knee pain and swelling TECHNIQUE: Magnetic resonance imaging (MRI) of the left knee was performed without intravenous contra st. Sequences included coronal PD-weighted FSE, coronal PD-weighted FS FSE, sagittal T2-weighted FSE , sagittal PD-weighted FS FSE and axial PD weighted fat saturated FSE. COMPARISON: Left knee radiographs dated 01/13/2024 FINDINGS: Medial compartment: Complex tear of the posterior horn and posterior body of the medial meniscus. There is a region of de ep chondral ulceration with mild underlying some reticular edema-like signal change at the lateral as pect of the medial tibial plateau. Less severe partial thickness cartilage loss with scattered mild c hondral surface regularity and without degenerative subchondral changes along the weightbearing media l femoral condyle which appears to involve greater than 50% of the cartilage thickness at the central weightbearing medial femoral condyle. Lateral compartment: Complex tear involving the entire left meniscus. There is essentially complete loss of meniscal tissu e at the posterior horn. There is a 13 x 10 x 6 mm region of intermediate to low signal intensity tis francisco anterior to the tibial insertion of the anterior cruciate ligament which could represent some dis placed meniscal tissue. There is extensive deep chondral ulceration along the weightbearing lateral f emoral condyle most prominent centrally where there is subtle underlying cortical regularity but no d egenerative subcortical changes. There is additional deep chondral ulceration without degenerative purdy bchondral changes involving a significant portion of the posterior aspect of the lateral tibial plate au. Patellofemoral compartment: Deep chondral ulceration at the medial patellar facet with less severe partial thickness chondral ulc eration with deep fissuring at the patellar apical ridge and medial side of the lateral patellar face t, each region with scattered subarticular edema-like signal change and with small central subchondra l osteophyte along the patellar apical ridge. Partial-thickness chondral ulceration with deep fissuri ng without degenerative subchondral changes at the central aspect of the trochlear groove and extendi ng into the adjacent central to inferior aspect of the medial trochlea. Ligaments and tendons: Anterior and posterior cruciate ligaments are normal. The medial collateral ligament and fibular raul ateral ligament complex are normal. Patellar tendon is normal. Mild distal quadriceps tendinopathy wi thout tear. The visualized medial and lateral hamstring tendons as well as the iliotibial band are no rmal. Fluid: Moderate-sized left knee joint effusion. Osseous/other: Bone alignment is normal. No fracture. There is prominent likely degenerative T2 hyperintense subarti cular cystic change at the proximal head of the fibula with associated thin sclerotic margins evident on prior radiographs. IMPRESSION: 1. Complex tears of the medial and lateral menisci with essentially complete loss of meniscal tissue at the posterior horn of the lateral meniscus. 2. Moderate tricompartmental osteoarthritis with extensive regions of moderate and high-grade chondro malacia in all 3 compartments. 2. Moderate-sized knee joint effusion. Reviewed, dictated and finalized at location A. IMPRESSION: 1. Complex tears of the medial and lateral menisci with essentially complete lo ss of meniscal tissue at the posterior horn of the lateral meniscus. 2. Moderate tricompartmental osteoarthritis with extensive regions of moderate and high-grade chondromalacia in all 3 compartments. 2. Moderate-sized knee joint effusion.
--- NOTE | ~2024-01-24 | US_ITS ---
EXAMINATION: US soft tissue LE RT DATE: 01/24/2024 09:31 INDICATION: Chronic right knee pain TECHNIQUE: Multiple grayscale and Doppler ultrasound images of the popliteal fossa of the right knee were obtained. COMPARISON: Right knee radiographs dated 01/13/2024 FINDINGS: There is a 4.2 x 3.2 x 4.0 cm complex cyst at the right popliteal fossa with weblike pattern is thin internal septations multiple anechoic cystic loculations. There are also a small hypoechoi c regions scattered cysts and septations without evident internal vascular flow on color Doppler. No surrounding hyperemia. IMPRESSION: 1. 4.2 x 3.2 x 4.0 cm complex cystic lesion at the right popliteal fossa most likely either a hematom a or Ferrer's cyst. Reviewed, dictated and finalized at location A. IMPRESSION: 1. 4.2 x 3.2 x 4.0 cm complex cystic lesion at the right popliteal fossa most l ikely either a hematoma or Ferrer's cyst.
== END 2024-01-24 09:10 | disposition home or self-care (01) ==
PROVIDERS: PCP Family Medicine; Visit Provider Nurse Practitioner Family
DX: S83.272A Complex tear of lateral meniscus, current injury, left knee, initial encounter (principal); S83.232A Complex tear of medial meniscus, current injury, left knee, initial encounter; M17.12 Unilateral primary osteoarthritis, left knee; M71.21 Synovial cyst of popliteal space [Baker], right knee; M25.462 Effusion, left knee; M94.262 Chondromalacia, left knee; G89.29 Other chronic pain; M25.511 Pain in right shoulder; X58.XXXA Exposure to other specified factors, initial encounter
CPT/HCPCS: 73721; 76882

== ENCOUNTER 2024-03-01 14:11 | Outpatient (CLI) | payer MEDICARE, SELFPAY ==
[2024-03-01 15:30] LABS: Prostate Specific Antigen 1.7 ng/mL (< OR = 4.0)
== END 2024-03-01 14:12 | disposition home or self-care (01) ==
PROVIDERS: PCP Family Medicine; Visit Provider Family Medicine
DX: Z12.5 Encounter for screening for malignant neoplasm of prostate (principal)
CPT/HCPCS: 36415; 84153; G0103

== ENCOUNTER 2024-05-06 11:49 | Outpatient (CLI) | payer MEDICARE, SELFPAY ==
[2024-05-06 12:08] LABS: Hematocrit 42.6 % (42.0-52.0); Hemoglobin 14.3 g/dL (14.0-18.0); Mean Corpuscular HGB Conc 33.6 g/dl (32-36); Mean Corpuscular Volume 95.3 fl (80-100); Mean Platelet Volume 10.1 fl (7.4-10.4); Platelet Count Result 164 k/mm3 (150-375); Red Blood Count 4.47 M/mm3 (4.6-6.20); Red Cell Distribution Width 12.4 % (11.5-14.5); White Blood Count 6.6 K/mm3 (4.5-10.0)
[2024-05-06 12:20] LABS: Alanine Aminotransferase 18 U/L (6-50); Albumin Level 4.5 g/dL (3.5-5.1); Alkaline Phosphatase 67 U/L (38-126); Anion Gap 4 mmol/L (4-12); Aspartate Amino Transferase 27 U/L (17-59); Bilirubin,Total 0.7 mg/dL (0.2-1.3); Blood Urea Nitrogen 14 mg/dL (9-20); Calcium 9.4 mg/dL (8.4-10.2); Carbon Dioxide 30 mmol/L (22-30); Chloride 100 mmol/L (98-107); Cholesterol 143 mg/dL (0-200); Estimated Glomerular Filt Rate > 60; Glucose 99 mg/dL (65-110); HDL Direct 48 mg/dL; Potassium 4.5 mmol/L (3.4-5.0); Sodium 134 mmol/L (137-145); Triglycerides 139 mg/dL (<150)
[2024-05-06 12:31] LABS: LDL Cholesterol Direct 34 mg/dL
[2024-05-06 12:50] LABS: Prostate Specific Antigen 1.3 ng/mL (< OR = 4.0)
== END 2024-05-06 11:50 | disposition home or self-care (01) ==
PROVIDERS: PCP Family Medicine; Visit Provider Family Medicine
DX: I10 Essential (primary) hypertension (principal); E78.2 Mixed hyperlipidemia; R53.82 Chronic fatigue, unspecified; F32.9 Major depressive disorder, single episode, unspecified; Z86.39 Personal history of other endocrine, nutritional and metabolic disease; E83.119 Hemochromatosis, unspecified; Z12.5 Encounter for screening for malignant neoplasm of prostate; E34.9 Endocrine disorder, unspecified
CPT/HCPCS: 36415; 80053; 80061; 84153; 85027; G0103

== ENCOUNTER 2024-08-31 10:24 | Outpatient (CLI) | payer MEDICARE, SELFPAY ==
--- OUTSIDE RECORDS SUMMARY | 2024-08-31 11:38 | XMS_ITS | Clinical Summary ---
Author Organization [facility] Address [address] [place] [address] Care Team Providers Care Decal Decorator Name Role Phone Solis Nixon MD Primary Care Provider [phone] Source Comments [facility],non-owned Affiliates and Associated Physician Practices is amultiple site organization consisting of ambulatory clinics and hospital sitesin [place], [place], [place] and [place]. This disclosure is being madepursuant to the Care Everywhere program and may not contain all information available regarding this patient. Last updated 18.[facility] Immunizations Name Administration Dates Next Due INFLUENZA VACCINE, QUADR. (F LUZONE; FLULAVAL; FLUARIX; AFLURIA QUADRIVALENT; 6MO+), 0.5 ML (IIV4) 02/27/2021 Social History Tobacco Use Types Packs/Day Years Used Date Smoking Tobacco: Never Assessed Sex and Gender Information Value Date Recorded Sex Assigned at Not on file Gender Identity Not on file Sexual Orientation Not on file Last Filed Vital Signs Vital Sign Reading Time Taken Comments Blood Pressure - - Pulse - - Temperature - - Respiratory Rate - - Oxygen Saturation - - Inhaled Oxygen Concentration - - Weight 105.2 kg (232 lb) 02/08/2014 10:20 AM CDT Height 195.6 cm (6' 5 ) 02/08/2014 10:20 AM CDT Body Mass Index 27.51 02/08/2014 10:20 AM CDT Plan of Treatment Health Maintenance Due Date Last Done Comments COLOGUARD (AGES 45-75) - COL ON CA SCREENING 1957 COLON MONITORING 1957 COLONOSCOPY - COLON CA SCREENING 1957 CT COLONOGRAPHY - COLON CA SCREENING 1957 Colorectal Cancer Screening 1957 FIT - COLON CA SCREENING 1957 FLEX SIG - COLON CA SCREENING 1957 LIPID TESTING 1957 HEPATITIS C SCREENING 02/22/1975 DTAP/TDAP/TD VACCINES (1 - Tdap) 02/27/1976 PNEUMOCOCCAL VACCINE 50+ (1 of 1 - PCV) 2007 ZOSTER VACCINE (1 of 2) 2007 COVID-19 VACCINE (1 - 2023-2 5 season) 2024 DEPRESSION SCREENING 05/26/2024 INFLUENZA VACCINE (Season Ended) 2025 02/28/20 21 Respiratory Syncytial Virus (RSV) Vaccine Pt: or over 60 yrs (1 - 1-dose 75+ series) 02/27/2032 HEPATITIS B VACCINE Aged Out No longe r eligible based on patient's age to complete this topic HIB VACCINE Aged Out No longer eligi ble based on patient's age to complete this topic HPV VACCINE Aged Out No longer eligi ble based on patient's age to complete this topic MENINGOCOCCAL (Group B) VACC INE SHARED DECISION-MAKING Aged Out No longer eligibl e based on patient's age to complete this topic MENINGOCOCCAL GROUPS A/C/Y/W VACCINE Aged Out No longer eligible b ased on patient's age to complete this topic Care Teams Decal Decorator Relationship Specialty Start Date End Date Solis Nixon MD [address] [place] [address] PCP - General Internal Medicine 04/29/13
--- OUTSIDE RECORDS SUMMARY | 2024-08-31 11:38 | XMS_ITS | Referral Summary ---
Author Organization [facility] Address [address] [place] [address] Care Team Providers Care Behavioral Interventionist Name Role Phone Solis Nixon MD Primary Care Provider [phone] Allergies Active Allergy Reactions Criticality Noted Date Comments Julian Fernandez Medium 09/01/2017 Medications tadalafil (CIALIS) 20 mg tabletIndicatio ns:Erectile Dysfunction Take 20 mg by mouth daily as needed Indications: Inability to have an Erection. 8 Active clonazePAM (KlonoPIN) 1 mg tabletIndicatio ns:Panic Disorder Take 1 mg by mouth nightly Indications: panic disorder. 0 9 Active ARNUITY ELLIPTA 200 mcg/actuation blister with deviceIndicatio ns:shortness of breath daily as needed Indications: shortness of breath. 9 Active fluticasone (FLONASE) 50 mcg/actuation nasal sprayIndication s:Allergic Rhinitis Administer 2 sprays into each nostril 2 (two) times a day Indications: inflammation of the nose due to an allergy. 9 Active multivitamin-mi nerals-lutein tablet Take 1 tablet by mouth nightly. Active omega-3 fatty acids-fish oil 300-1,000 mg capsuleIndicati ons:hypertrigly ceridemia Take 2 g by mouth nightly Indications: high amount of triglyceride in the blood. Active quinapril (ACCUPRIL) 20 mg tabletIndicatio ns:hypertension Take 20 mg by mouth 2 times daily Indications: high blood pressure. Active testosterone 20.25 mg/1.25 gram (1.62 %) gel in metered-dose pumpIndications :Androgen Deficiency Place 3 Pump on the skin instructional technology coach before breakfast Indications: Deficiency of a Substance that Promotes Masculinization. 8 Active oxyCODONE (ROXICODONE) 5 mg immediate release tabletIndicatio ns:Pain Take 1-2 tablets (5-10 mg total) by mouth every 4 (four) hours as needed for pain 40 tablet 9 Active acetaminophen (TYLENOL) 325 mg tabletIndicatio ns:Pain Take 2 tablets (650 mg total) by mouth every 6 (six) hours as needed for pain 100 tablet 1 9 Active docusate sodium (COLACE) 100 mg capsuleIndicati ons:constipatio n Take 1 capsule (100 mg total) by mouth 2 (two) times a day 30 capsule 1 9 Active aspirin 325 mg tabletIndicatio ns:prevention of thrombosis Take 1 tablet (325 mg total) by mouth 2 (two) times a day 28 tablet [address] (VOLTAREN) 75 mg EC tablet Take 75 mg by mouth 2 times daily Active traMADol (ULTRAM) 50 mg tablet 9 Active cefdinir (OMNICEF) 300 mg capsule TK ONE C PO BID 1 9 Active Active Problems Problem Noted Date Diagnosed Date Hypertension 08/05/2018 Risk factors for obstructive sleep apnea 019 Left shoulder pain 07/13/2018 Overview (07/13/2018): Added automatically from request for surgery [id number] Social History Tobacco Use Types Packs/Day Years Used Date Smoking Tobacco: Former Smokeless Tobacco: Never Comments:cigars not since oc Alcohol Use Standard Drinks/Week Comments Yes 0 (1 standard drink = 0.6 oz pur e alcohol) rare Sex and Gender Information Value Date Recorded Sex Assigned at Not on file Legal Sex Male 11:12 AM [employer] Gender Identity Not on file Sexual Orientation Not on file Last Filed Vital Signs Vital Sign Reading Time Taken Comments Blood Pressure 137/83 08/11/2018 10:10 AM CDT Pulse 96 08/11/2018 10:10 AM CDT Temperature 36.7 C (98.1 F) 08/11/2018 7:55 AM CDT Respiratory Rate 18 08/11/2018 7:55 AM CDT Oxygen Saturation 95% 08/11/2018 10:10 AM CDT Inhaled Oxygen Concentration - - Weight 104.3 kg (230 lb) 08/10/2018 2:40 PM CDT Height 195.6 cm (6' 5 ) 08/10/2018 2:40 PM CDT Body Mass Index 27.27 08/10/2018 2:40 PM CDT Plan of Treatment Not on file Medical Devices Implanted Type Area Mold Yard Crane Operator Device Identifier Shelf Expiration Date Model / Serial / Lot [employer] [id number] 25mm Reverse Shoulder Baseplate Glenoid Trabecular Metal - [id number] Implanted:Qty: 1 on 08/10/2018 by Ayo Higgins MD at [facility] Left: Shoulder [employer] [id number] 05/25/2028 [id number] / / [id number] [employer] .17141.042 Ncb Anatomical Shoulder 4.5mm 42mm Inverse Reverse Lock Self Tap - [id number] Implanted:Qty: 1 on 08/10/2018 by Ayo Higgins MD at [facility] Left: Shoulder [employer] [id number] 03/25/2023.24424.042 / / [id number] [employer] 01.26724.048 Ncb Anatomical Shoulder 4.5mm 48mm Inverse Reverse Lock Self Tap - [id number] Implanted:Qty: 1 on 08/10/2018 by Ayo Higgins MD at [facility] Left: Shoulder [employer] [id number] 10/23/2022.47434.048 / / [id number] [employer] [id number] 36mm Reverse Shoulder Sphere Glenoid Trabecular Metal - [id number] Implanted:Qty: 1 on 08/10/2018 by Ayo Higgins MD at [facility] Left: Shoulder [employer] [id number] 03/25/2028 [id number] / / [id number] [employer] [id number] 14mm 130mm Shoulder Stem Humeral Trabecular Metal Tivanium - [id number] Implanted:Qty: 1 on 08/10/2018 by Ayo Higgins MD at [facility] Left: Shoulder [employer] [id number] 05/25/2028 [id number] / / [id number] [employer] [id number] 36mm Reverse Humerus 7d +6mm Offset Standard Liner Shoulder - [id number] Implanted:Qty: 1 on 08/10/2018 by Ayo Higgins MD at [facility] Left: Shoulder [employer] [id number] 03/25/2026 [id number] / / [id number] Insurance [facility] [employer] [place] [facility] Advance Directives For more information, please contact: [phone] * Full Code (Latest Code Status on File) Date Activated Date Inactivated Comments 08/10/2018 2:34 PM 08/11/2018 4:38 PM Care Teams Behavioral Interventionist Relationship Specialty Start Date End Date Solis Nixon MD [address] [place] [address] [place] [address] [facility] - General 09/16/16
--- OUTSIDE RECORDS SUMMARY | 2024-08-31 11:38 | XMS_ITS | Clinical Summary ---
Author Organization [facility] Address [address] [place] [address] Care Team Providers Care Merchandise Team Manager Name Role Phone Solis Nixon MD Primary Care Provider [phone] Allergies Active Allergy Reactions Criticality Noted Date Comments Julian Puente 09/01/2017 Medications tadalafil (CIALIS) 20 mg tabletIndicatio [...] Deficiency Place 3 Pump on the skin registered land surveyor before breakfast Indications: Deficiency of a Substance [...] (07/13/2018): Added automatically from request for surgery [id number] Surgical History Surgery Date Site/Laterality Comments SHOULDER ARTHROPLASTY COLONOSCOPY Medical History Medical History Date Comments Osteoarthritis HTN (hypertension) Family History Medical History Relation Name Comments Anesthesia problems Neg Hx Social History Tobacco Use Types Packs/Day Years Used Date Smoking Tobacco: Former Smokeless Tobacco: Never Comments:cigars not since Alcohol Use Standard Drinks/Week Comments Yes 0 (1 standard drink = 0.6 oz pur e alcohol) rare Sex and Gender Information Value Date Recorded Sex Assigned at Not on file 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 Gender Identity Not on file Sexual Orientation Not on file Obstetrics History Last Filed Vital Signs Vital Sign Reading [...] on file Medical Devices Implanted Type Area Ditcher Operator Device Identifier Shelf Expiration Date Model / Serial / Lot [employer] [id number] 25mm Reverse Shoulder Baseplate Glenoid Trabecular Metal - [id number] Implanted:Qty: 1 on 08/10/2018 by Ayo Higgins MD at [facility] Left: Shoulder [employer] [id number] 05/25/2028 [id number] / / [id number] [employer] 01.31012.042 Ncb Anatomical Shoulder 4.5mm 42mm Inverse Reverse Lock Self Tap - [id number] Implanted:Qty: 1 on 08/10/2018 by Ayo Higgins MD at [facility] Left: Shoulder [employer] [id number] 03/25/2023 01.39140.042 / / [id number] [employer] 01.53848.048 Ncb Anatomical Shoulder 4.5mm 48mm Inverse Reverse Lock Self Tap - [id number] Implanted:Qty: 1 on 08/10/2018 by Ayo Higgins MD at [facility] Left: Shoulder [employer] [id number] 10/23/2022 01.69986.048 / / [id number] [employer] [id number] 36mm Reverse Shoulder Sphere Glenoid Trabecular Metal - [id number] Implanted:Qty: 1 on 08/10/2018 by Ayo Higgins MD at [facility] Left: Shoulder [employer] [id number] 03/25/2028 [id number] / / [id number] [employer] [id number] 14mm 130mm Shoulder Stem Humeral Trabecular Metal Tivanium - [id number] Implanted:Qty: 1 on 08/10/2018 by Ayo Higgins MD at [facility] Left: Shoulder [employer] [id number] 05/25/2028 [id number] / / [id number] [employer] [id number] 36mm Reverse Humerus 7d +6mm Offset Standard Liner Shoulder - [id number] Implanted:Qty: 1 on 08/10/2018 by Ayo Higgins MD at [facility] Left: Shoulder [employer] [id number] 03/25/2026 [id number] / / [id number] [facility] [place]ET[place] PREFERRED AET[place] AETNA [facility] HMO Advance Directives For more information, please contact: [phone] * Full Code (Latest Code Status on File) Date Activated Date Inactivated Comments 08/10/2018 2:34 PM 08/11/2018 4:38 PM Care Teams Merchandise Team Manager Relationship Specialty Start Date End Date Solis Nixon MD [address] [facility] [address] [place] [address] PCP - General 09/16/16
--- OUTSIDE RECORDS SUMMARY | 2024-08-31 11:38 | XMS_ITS | Clinical Summary ---
Author Organization [facility] Address [address] [place] [address] Care Team Providers Care Charger Tester Name Role Phone Juan Sanford MD Primary Care Provider [phone] Allergies Active Allergy Reactions Criticality Noted Date Comments Codeine Hives High 09/01/2017 Medications CIALIS 20 mg tablet Take 20 mg by mouth daily. 2 8 Active quinapril (ACCUPRIL) 20 mg tablet Take 20 mg by mouth 2 times daily. Active clonazePAM (KlonoPIN) 1 mg tablet Take 1 mg by mouth daily. Active omega-3 fatty acids-fish oil 300-1,000 mg Capsule Take by mouth daily. Active multivitamins-m inerals-lutein (CENTRUM SILVER) Tablet Take 1 Tablet by mouth daily. Active testosterone (ANDROGEL) 20.25 mg/1.25 gram (1.62 %) Gel in Metered-dose Pump Apply 40.5 mg to affected area daily Apply to the shoulders and upper arms in the morning . Active ARNUITY ELLIPTA 200 mcg/actuation inhaler INHALE 1 PUFF PO QD 6 9 Active fluticasone (FLONASE) 50 mcg/spray [place], Suspension SPRAY TWICE INTO EACH NOSTRIL QD 6 9 Active albuterol HFA 90 mcg inhaler INL 1 INHALATION PO Q 4 H 0 Active citalopram (CeleXA) 20 mg tablet Take 20 mg by mouth daily at bedtime. Active Active Problems Problem Noted Date Diagnosed Date Hereditary hemochromatosis 09/08/2017 Resolved Problems Problem Noted Date Diagnosed Date Resolved Date Elevated ferritin 09/01/2017 09/08/2017 Family History Medical History Relation Name Comments High Cholesterol Father Hypertension Father Kidney Disease Father Stroke Father Colon Cancer Maternal Grandfather Heart Disease Maternal Grandfather Depression Mother Osteoporosis Mother Ovarian Cancer Mother Anemia Sister Relation Name Status Comments Father Maternal Grandfather Mother Sister Social History Tobacco Use Types Packs/Day Years Used Date Smoking Tobacco: Light Smoker Tobacco Cessation:Ready to Q uit: Not Asked; Counseling Given: Not Answered Comments:cigar smoker 3-4 a year Alcohol Use Standard Drinks/Week Comments Yes 0 (1 standard drink = 0.6 oz pur e alcohol) social drinker Sex and Gender Information Value Date Recorded Sex Assigned at Not on file Legal Sex Male 10:11 AM CDT Gender Identity Not on file Sexual Orientation Not on file Last Filed Vital Signs Vital Sign Reading Time Taken Comments Blood Pressure 113/76 11/06/2023 10:03 AM CDT Pulse 78 11/05/2022 11:36 AM CDT Temperature 36.3 C (97.3 F) 11/06/2023 10:03 AM CDT Respiratory Rate 14 11/06/2023 10:03 AM CDT Oxygen Saturation 98% 11/06/2023 10:03 AM CDT Inhaled Oxygen Concentration - - Weight 102.5 kg (226 lb) 11/06/2023 10:03 AM CDT Height 195.6 cm (6' 5 ) 11/06/2021 11:23 AM CDT Body Mass Index 26.8 11/06/2021 11:23 AM CDT Plan of Treatment Upcoming Encounters Date Type Department Care Team (Late st Contact Info) Description 11/05/2024 10:00 AM CDT Office Visit [facility]3] Oncology and Hematology - [place] [address] [facility] [address] [place] [address] Dipak Farrar MD [address] [facility] [address] [place] [address] Health Maintenance Due Date Last Done Comments Pre-Diabetes and Diabetes Screening 1957 DTAP/TDAP/TD VACCINES (1 - Tdap) 02/27/1976 PNEUMOCOCCAL VACCINE 50+ YEARS (1 of 2 - PCV) 02/26/19 76 COLORECTAL SCREENING 2002 Colorectal Cancer Screening 2002 FIT-DNA Q 3 years 2002 FIT/FOBT Q 1 year 2002 Flex Sig/CT Colonography Q 5 years 2002 ZOSTER VACCINE (1 of 2) 2007 Abdominal Aortic Aneurysm (AAA) Screening 2022 INFLUENZA VACCINE (#1) 2023 02/27/2021 RSV VACCINE (60+ or ) (1 - 1-dose 75+ series) 02/27/[address] [place] [address] [place] [address] [facility] Care Teams Charger Tester Relationship Specialty Start Date End Date Juan Sanford MD PCP - General Family Practice 11/05/22
[2024-09-05 15:34] LABS: Testosterone Total 668 ng/dL (250-1100)
== END 2024-08-31 10:25 | disposition home or self-care (01) ==
PROVIDERS: PCP Family Medicine; Visit Provider Family Medicine
DX: E34.9 Endocrine disorder, unspecified (principal); E29.1 Testicular hypofunction
CPT/HCPCS: 36415; 84403

== ENCOUNTER 2024-11-02 10:07 | Outpatient (CLI) | payer MEDICARE, SELFPAY ==
[2024-11-02 10:23] LABS: Basophils Percent Auto 0.7 % (0.2-1.2); Eosinophils Absolute Auto 0.1 K/mm3 (0-0.3); Eosinophils Percent Auto 2.1 % (0-4.4); Hematocrit 41.9 % (42.0-52.0); Hemoglobin 13.9 g/dL (14.0-18.0); Immature Granulocyte Absolute 0.04 K/mm3 (0.00-0.031); Immature Granulocyte Percent A 0.7 % (0-0.5); Lymphocytes Absolute Auto 1.45 K/mm3 (0.9-3.2); Lymphocytes Percent Auto 25.9 % (18.3-44.2); Mean Corpuscular HGB Conc 33.2 g/dl (32-36); Mean Corpuscular Hemoglobin 31.6 pg (26-34); Mean Corpuscular Volume 95.2 fl (80-100); Monocytes Absolute Auto 0.7 K/mm3 (0.1-0.6); Monocytes Percent Auto 13.2 % (2.6-8.5); Neutrophils Absolute Auto 3.2 K/mm3 (1.3-6.7); Neutrophils Percent Auto 57.4 % (45.5-73.1); Platelet Count Result 159 k/mm3 (150-375); Red Cell Distribution Width 12.8 % (11.5-14.5); White Blood Count 5.6 K/mm3 (4.5-10.0)
--- OUTSIDE RECORDS SUMMARY | 2024-11-02 11:00 | XMS_ITS | Referral Summary ---
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 Indications: Deficiency of a Substance [...] (07/13/2018): Added automatically from request for surgery [id number] Social History Tobacco Use Types Packs/Day Years Used Date Smoking Tobacco: Former Smokeless Tobacco: Never Comments:cigars not since oc Alcohol Use Standard Drinks/Week Comments Yes 0 (1 standard drink = 0.6 oz pur e alcohol) rare Sex and Gender Information Value Date Recorded Sex Assigned at Not on file 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 Gender Identity Not on file Sexual Orientation [...] 2:40 PM CDT Height 195.6 cm (6' 5) 08/10/2018 2:40 PM CDT Body Mass Index 27.27 08/10/2018 2:40 PM CDT Plan of Treatment Not on file Medical Devices Implanted Type Area Panel Edge Painter Device Identifier Shelf Expiration Date Model / Serial / Lot [employer] [id number] 25mm Reverse Shoulder Baseplate Glenoid Trabecular Metal - [id number] Implanted:Qty: 1 on 08/10/2018 by Ayo Higgins MD at [facility] Left: Shoulder [employer] [id number] 05/25/2028 [id number] / / [id number] [employer] .76499.042 Ncb Anatomical Shoulder 4.5mm 42mm Inverse Reverse Lock Self Tap - [id number] Implanted:Qty: 1 on 08/10/2018 by Ayo Higgins MD at [facility] Left: Shoulder [employer] [id number] 03/25/2023.68626.042 / / [id number] [employer] 01.33370.048 Ncb Anatomical Shoulder 4.5mm 48mm Inverse Reverse Lock Self Tap - [id number] Implanted:Qty: 1 on 08/10/2018 by Ayo Higgins MD at [facility] Left: Shoulder [employer] [id number] 10/23/2022.62111.048 / / [id number] [employer] [id number] 36mm Reverse Shoulder Sphere Glenoid Trabecular Metal - [id number] Implanted:Qty: 1 on 08/10/2018 by Ayo Higgins MD at [facility] Left: Shoulder [employer] [id number] 03/25/2028 [id number] / / [id number] [employer] [id number] 14mm 130mm Shoulder Stem Humeral Trabecular Metal Tivanium - [id number] Implanted:Qty: 1 on 08/10/2018 by Ayo Higgins MD at [facility] Left: Shoulder [employer] [id number] 05/25/2028 [id number] / / [id number] [employer] [id number] 36mm Reverse Humerus 7d +6mm Offset Standard Liner Shoulder - [id number] Implanted:Qty: 1 on 08/10/2018 by Ayo Higgins MD at [facility] Left: Shoulder [employer] [id number] 03/25/2026 [id number] / / [id number] [facility] AETNA [place] PREFERRED [facility] Advance Directives For more information, please contact: [phone] * Full Code (Latest Code Status on File) Date Activated Date Inactivated Comments 08/10/2018 2:34 PM 08/11/2018 4:38 PM Care Teams Waistband Setter Relationship Specialty Start Date End Date Solis Nixon MD [address] [address] [facility] [address] [place] [address] [place] [address] [facility] - General 09/16/16
--- OUTSIDE RECORDS SUMMARY | 2024-11-02 11:00 | XMS_ITS | Clinical Summary ---
Author Organization [facility] Address [address] [place] [address] Care Team Providers Care Shoe Sticks Repairer Name Role Phone Solis Nixon MD Primary Care Provider [phone] Source Comments [facility],non-owned Affiliates and Associated Physician Practices is amultiple site organization consisting of ambulatory clinics and hospital sitesin [place], [place], [place] and [place]. This disclosure is being madepursuant to the Care Everywhere program and may not contain all information available regarding this patient. Last updated 18.[facility] Immunizations Immunization Administration Dates Next Due INFLUENZA VACCINE, QUADR. 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
--- OUTSIDE RECORDS SUMMARY | 2024-11-02 11:00 | XMS_ITS | Clinical Summary ---
Author Organization [facility] Address [address] [facility] [place] [address] Care Team Providers Care Instructional Facilitator Name Role Phone Juan Sanford MD Primary Care Provider [phone] Allergies Active Allergy Reactions Criticality Noted Date [...] 6 9 Active fluticasone (FLONASE) 50 mcg/spray [place], Suspension SPRAY TWICE INTO EACH NOSTRIL QD [...] 10:03 AM CDT Height 195.6 cm (6' 5) 11/06/2021 11:23 AM CDT Body Mass Index 26.8 11/06/2021 11:23 AM CDT Plan of Treatment Upcoming Encounters Date Type Department Care Team (Late st Contact Info) Description 11/05/2024 10:00 AM CDT Office Visit [facility] Oncology and Hematology - [place] [address] [facility] [address] [place] [address] Dipak Farrar MD [address] [facility] [address] [place] [address] Health Maintenance Due Date Last [...] Screening 2022 INFLUENZA VACCINE (#1) 2023 02/27/2021 [place] Prev entative Visit/Annual Wellness Visit 05/26/2024 RSV VACCINE (60+ or ) (1 - 1-dose 75+ series) 02/27/2032 Insurance [facility] Care Teams Instructional Facilitator Relationship Specialty Start Date End Date Juan Sanford MD PCP - General Family Practice 11/05/22
--- OUTSIDE RECORDS SUMMARY | 2024-11-02 11:00 | XMS_ITS | Clinical Summary ---
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 Gender Identity Not on file Sexual Orientation [...] on file Medical Devices Implanted Type Area Director Blood Bank Device Identifier Shelf Expiration Date Model / Serial / Lot [employer] [id number] 25mm Reverse Shoulder Baseplate Glenoid Trabecular Metal - [id number] Implanted:Qty: 1 on 08/10/2018 by Ayo Higgins MD at [facility] Left: Shoulder [employer] [id number] 05/25/2028 [id number] / / [id number] [employer] 01.48000.042 Ncb Anatomical Shoulder 4.5mm 42mm Inverse Reverse Lock Self Tap - [id number] Implanted:Qty: 1 on 08/10/2018 by Ayo Higgins MD at [facility] Left: Shoulder [employer] [id number] 03/25/2023 01.28487.042 / / [id number] [employer] 01.40145.048 Ncb Anatomical Shoulder 4.5mm 48mm Inverse Reverse Lock Self Tap - [id number] Implanted:Qty: 1 on 08/10/2018 by Ayo Higgins MD at [facility] Left: Shoulder [employer] [id number] 10/23/2022 01.40190.048 / / [id number] [employer] [id number] 36mm Reverse Shoulder Sphere Glenoid Trabecular Metal - [id number] Implanted:Qty: 1 on 08/10/2018 by Ayo Higgins MD at [facility] Left: Shoulder [employer] [id number] 03/25/2028 [id number] / / [id number] [employer] [id number] 14mm 130mm Shoulder Stem Humeral Trabecular Metal Tivanium - [id number] Implanted:Qty: 1 on 08/10/2018 by Ayo Higgins MD at [facility] Left: Shoulder [employer] [id number] 05/25/2028 [id number] / / [id number] [employer] [id number] 36mm Reverse Humerus 7d +6mm Offset Standard Liner Shoulder - [id number] Implanted:Qty: 1 on 08/10/2018 by Ayo Higgins MD at [facility] Left: Shoulder [employer] [id number] 03/25/2026 [id number] / / [id number] Insurance [facility] AETNA [place] PREFERRED AETNA [place] [facility] Advance Directives For more information, please contact: [phone] * Full Code (Latest Code Status on File) Date Activated Date Inactivated Comments 08/10/2018 2:34 PM 08/11/2018 4:38 PM Care Teams Belt Maker Relationship Specialty Start Date End Date Solis Nixon MD [address] [facility] [address] [place] [address] PCP - General 09/16/16
--- OUTSIDE RECORDS SUMMARY | 2024-11-02 11:00 | XMS_ITS | Data Portability ---
Author Organization [facility] [employer] [facility], Main Office Address [address] [place] [address] Care Team Providers Care Evp Of Products [employer] Founder Name Role Phone MAGNO ORTIZ Primary Care Provider MAGNO ORTIZ Referring Provider [phone] Assessment Encounter Date Assessment Date Assessment LastModified by Organization Details LastModified Time 10/11/2024 10/11/2024 This note is dictated and transcribed by [employer]. Sewer variances may occur. Despite proofreading, typographical errors may occur. Occasional wrong-word or 'icspc-c-[id number]' substitutions may have occurred due to the inherent limitations of voice recording. Read the chart carefully and recognize, using context, where substitutions have occurred. [email or web address] Not available 10/11/2024 11:18:06 Plan of Treatment Reminders Order Date Submit Date Provider Last Modified By Organization Details Last Modified Time Details Appointments None record ed. Lab None record ed. Referral None record ed. Procedures None record ed. Surgeries None record ed. Imaging None record ed. Medication Orders None record ed. Patient TargetsNo targets recorded. Patient Instructions Encounter Date Encounter Id Patient Instructions Last Modified By Organization Details Last Modified Time 10/11/2024 [id number] plantar fasciitis: exercises [email or web address] Not available 10/11/2024 11:19:47 plantar fasciiti s education [email or web address] Not available 10/11/2024 11:19:47 nonsteroidal anti-inflammatory drugs (nsaids): care instructions [email or web address] Not available 10/11/2024 11:19:47 Reason for Referral None Reported. Problems Name Problem SNOMED Code Status Onset Date Resolution Date Notes Provider Name and Address Organization Details Recorded Time Plantar fasciitis of right foot 02918844123224 101 Active 2024 Salty Eduardo DPM [address] [facility], [facility] [address], [place], [address], [place] [employer] 5 11:18:19 Pain in right heel 32293013283149 05 Active 2024 Salty Eduardo DPM [address], [place], [address], [employer] [facility] 5 11:18:25 Problem Notes None recorded. Procedures Surgical History Date Name Laterality Status Provider Name and Address Organization Details Recorded Time Plantar Fascia Injection Right Foot completed Salty Eduardo DPM [address], [place], [address], [employer] 10/11/2024 11:17:06 total shoulder replacement completed Mojgan Rosenthal [employer] [facility] [employer] [facility] 10/11/2024 11:09:19 Imaging Results None recorded. Procedure Notes None recorded. Medical Equipment None Reported. Allergies Allergen ID Allergen Name Allergen Category Reaction Reaction Severity Criticality Documentation Date Start Date Code Code System Note Provider Name and Address Organization Details Recorded Time 02543 codeine medicatio n Not available Not available Not available 10/11/2024 2670 [facility] Mojgan Rosenthal null, [facility] [employer] [facility] 5 11:04:50 Medications Name Sig Start Date Stop Date Status Note LastModified by Organization Details LastModified Time doxycycline hyclate 100 mg capsule TAKE 1 CAPSULE BY MOUTH TWICE DAILY FOR 10 DAYS 10/11 completed Not Available Not Available Not Available azithromyci n 250 mg tablet TAKE 2 TABLET DAY 1 AND THEN TAKE 1 TABLET FOR THE NEXT 4 DAYS BY MOUTH active Not Available Not Available No t Available benzonatate 200 mg capsule TAKE 1 CAPSULE BY MOUTH THREE TIMES DAILY NEEDED FOR COUGH active Not Available Not Available No t Available meloxicam 15 mg tablet TAKE 1 TABLET BY MOUTH DAILY active Not Available Not Available No t Available lisinopril 20 mg tablet TAKE 1 TABLET TWICE A DAY. CHANGE FROM QUINAPRIL . active Not Available Not Available No t Available clonazepam 1 mg tablet TAKE 1 TABLET AT BEDTIME active Not Available Not Available No t Available citalopram 20 mg tablet TAKE 1 TABLET DAILY active Not Available Not Available No t Available oseltamivir 75 mg capsule TAKE 1 CAPSULE BY MOUTH EVERY 12 HOURS FOR 5 DAYS active Not Available Not Available No t Available clotrimazol e-betametha sone 1 %-0.05 % topical cream APPLY TOPICALLY TO THE AFFECTED AREA TWICE DAILY active Not Available Not Available No t Available albuterol sulfate HFA 90 mcg/actuati on aerosol inhaler INHALE 1 PUFF BY MOUTH EVERY 4 HOURS NEEDED FOR SHORTNESS OF BREATH OR WHEEZING. active Not Available Not Available No t Available fluticasone propionate 50 mcg/actuati on nasal spray,suspe nsion SHAKE LIQUID AND USE 2 SPRAYS IN EACH NOSTRIL DAILY active Not Available Not Available No t Available amoxicillin 875 mg-potassiu m clavulanate 125 mg tablet TAKE 1 TABLET BY MOUTH TWICE DAILY active Not Available Not Available No t Available Flonase active Not Available Not Avail able Not Available testosteron e 20.25 mg/1.25 gram per pump act.(1.62 %) transdermal gel APPLY 2 PUMPS TOPICALLY TO UPPER AREA OF ONE ARM/SHOUL ANITA AND 1 PUMP TO OTHER ARM/SHOUL ANITA. active Not Available Not Available No t Available Arnuity Ellipta 200 mcg/actuati on powder for inhalation USE 1 INHALATIO N ORALLY DAILY active Not Available Not Available No t Available Vitals Date Recorded Heart rate Respiratory rate Oxygen saturation Oxygen saturation in Arterial blood by Pulse oximetry Body height Body mass index (BMI) Body weight Systolic blood pressure Diastolic blood pressure Provider Name and Address Organization Details Last Updated DateTime 5 81 /min 14 /min 98 % 98 % 193.04 cm 27.4 kg/m2 938883. 28 g 113 mm[Hg] 74 mm[Hg] Mojgan [facility] [employer] [facility] 5 10:27:56 Social History Question Answer Notes LastModified by [employer] Details LastModified Time What Is Your Level Of Caffeine Consumption? Occasional Information not available 10/11/2024 What Was The Date Of Your Most Recent Tobacco Screening? 10/11/2024 Information not available 10/11/2024 Have You Ever Been Counseled For Unhealthy Alcohol Use? No Information not available 10/11/2024 Has Tobacco Cessation Counseling Been Provided? No Information not available 10/11/2024 Sex: Unknown Functional Status Question Answer Note LastModified by [employer] Details LastModified Time Do you use any illicit or recreational drugs? No Information not available 10/11/2024 Do you or have you ever used any other forms of tobacco or nicotine? No Information not available 10/11/2024 What is your level of alcohol consumption? Occasional Information not available 10/11/2024 Mental Status None recorded. Family History Relationship Description Onset Age of this Age Resolved Age Notes LastModified by Organization Details LastModified Time Father Cerebrovascu lar accident Not available 11:06:06 Father Hypertensive disorder Not available 2024 11:08:23 Mother Arthritis Not available 10/11/2024 11:06:18 Maternal Grandfather Heart disease Not available 2024 11:08:36 Maternal Grandfather Malignant neoplastic disease Not available 2024 11:08:47 Medical History Condition Response ALLERGIES/HAYFEVER Y ARTHRITIS Y Past Encounters Encounter ID Performer Location Encounter Start Date Encounter Closed Date Diagnosis/Indication Diagnosis SNOMED-CT Code Diagnosis ICD10 Code Diagnosis Note [id number] Salty Eduardo DPM [facility] [address] [place] [address] 10/11/2024 10:20:53 10/12/2024 09:23:49 Plantar fasciitis of right foot 9731662623 2774909 M72.2 recommend [employer] Roosevelt orthoticsC ontinue supportive shoe gearRice therapyIci ng and stretching reviewedRi ght heel injection 10/11/2024 - monitor for signs of infection at present seek medical attention immediatel yFollow-up as needed Pain in right heel 79493 39382 512740 M79.671 as abovemay continue meloxicam, monitor for GI upset if occurs discontinu e medication immediatel y Health Concerns Section Related Observation LastModified by Organization Detai ls LastModified Time None Recorded Concern Status LastModified by Organization Details LastModified Time None Recorded Advance Directives Directive None Recorded Payers Encounter Date Sequence Insurance Name Policy Number Policy Oshea Covered Member ID Oshea Member ID Guarantor Name 10/11/2024 1 [employer] (MEDICARE REPLACEMENT /ADVANTAGE - PPO) [id number] 1 Carlos Saltsgaver [id number] [facility] Notes Date Note Type Note Provider Name and Address Organization Details Recorded Time 10/11/2024 text/html . Patient is a 69-year-old male who presents to the office with complaints of plantar fasciitis to right heel. Patient states he has not had any injury he is very active he states that when he is standing or walking he has pain in the heel. Patient states the pain rates at 9 out 10 he has had this same condition in the past to where he was seen by Podiatry underwent a injection and it resolved completely. Patient has been taking anti-inflammatori es for this condition which he states helps ease the pain but he continues to have discomfort with walking. Patient did use orthotics at 1 point but does not currently wear them. Patient denies any other complaints. Salty Eduardo DPM [address] [place] [address], [place], [address], [place] - [facility] [employer] [facility] [employer] 10/11/2024 11:20:17
[2024-11-02 11:55] LABS: Iron 146 ug/dL (49-181)
[2024-11-02 11:57] LABS: Alanine Aminotransferase 22 U/L (6-50); Albumin Level 4.5 g/dL (3.5-5.1); Alkaline Phosphatase 70 U/L (38-126); Anion Gap 7 mmol/L (4-12); Aspartate Amino Transferase 35 U/L (17-59); Bilirubin,Total 0.6 mg/dL (0.2-1.3); Blood Urea Nitrogen 16 mg/dL (9-20); Calcium 9.5 mg/dL (8.4-10.2); Carbon Dioxide 28 mmol/L (22-30); Chloride 101 mmol/L (98-107); Estimated Glomerular Filt Rate > 60; Glucose 102 mg/dL (65-110); Potassium 4.5 mmol/L (3.4-5.0); Sodium 136 mmol/L (137-145); Total Protein 7.3 g/dL (6.3-8.2)
[2024-11-02 12:05] LABS: Percent Iron Saturation 41 % (20-50)
== END 2024-11-02 10:08 | disposition home or self-care (01) ==
LOC: ANHLAB 10:08
PROVIDERS: PCP Family Medicine; Visit Provider Internal Medicine Hematology & Oncology
DX: E83.110 Hereditary hemochromatosis (principal)
CPT/HCPCS: 36415; 80053; 82728; 83540; 83550; 85025

== ENCOUNTER 2024-11-09 11:23 | Outpatient (CLI) | payer MEDICARE, SELFPAY ==
[2024-11-09 12:03] LABS: Hemoglobin 14.1 g/dL (14.0-18.0); Mean Corpuscular HGB Conc 33.6 g/dl (32-36); Mean Corpuscular Hemoglobin 31.8 pg (26-34); Mean Corpuscular Volume 94.8 fl (80-100); Mean Platelet Volume 10.3 fl (7.4-10.4); Platelet Count Result 172 k/mm3 (150-375); Red Blood Count 4.43 M/mm3 (4.6-6.20); Red Cell Distribution Width 12.9 % (11.5-14.5); White Blood Count 5.9 K/mm3 (4.5-10.0)
--- OUTSIDE RECORDS SUMMARY | 2024-11-09 12:26 | XMS_ITS | Clinical Summary ---
Author Organization [facility] Address [address] [place] [address] Care Team Providers Care Rn Dialysis Name Role Phone Solis Nixon MD Primary Care Provider [phone] Source Comments [facility],non-owned Affiliates and Associated Physician Practices is amultiple site organization consisting of ambulatory clinics and hospital sitesin [place], [place], [place] and [place]. This disclosure is being madepursuant to the Care Everywhere program and may not contain all information available regarding this patient. Last updated 18.[facility] Immunizations Immunization Administration Dates Next Due INFLUENZA VACCINE, QUADR. 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
--- OUTSIDE RECORDS SUMMARY | 2024-11-09 12:26 | XMS_ITS | Encounter Summary ---
Author Organization [facility] Address [address] [place] [address] Care Team Providers Care Roll Skinner Name Role Phone Juan Sanford MD Primary Care Provider [phone] Encounter Details Date Type Department Care Team (Late st Contact Info) Description 11/03/[address] [facility] Oncology and Hematology - [place] [address] [place] [address] Dipak Farrar MD [address] [employer] [address] [place] [address] Social History Tobacco Use Types Packs/Day Years Used Date Smoking Tobacco: Light Smoker Comments:cigar smoker 3-4 a year Alcohol Use Standard Drinks/Week Comments Yes 0 (1 standard drink = 0.6 oz pur e alcohol) social drinker Sex and Gender Information Value Date Recorded Sex Assigned at Not on file Legal Sex Male 10:11 AM CDT Gender Identity Not on file Sexual Orientation Not on file documented as of this encounter Plan of Treatment Upcoming Encounters Date Type Department Care Team (Late st Contact Info) Description 11/07/2025 10:00 AM CDT Office Visit [facility] Oncology and Hematology - [place] [address] [place] [address] Dipak Farrar MD [address] [employer] [address] [place] [address] documented as of this encounter Procedures Procedure Name Priority Date/Time Associated Diagnosis Comments COMPREHENSIVE METABOLIC PANEL Routine 11/02/2024 10:02 AM CDT documented in this encounter Results * COMPREHENSIVE METABOLIC PANEL (11/02/2024 10:02 AM CDT) Blood Dipak Farrar MD CHEMISTRY ORDERABLES Final Resu lt documented in this encounter Visit Diagnoses Not on filedocumented in this encounter Care Teams Roll Skinner Relationship Specialty Start Date End Date Juan Sanford MD PCP - General Family Practice 11/05/22 documented as of this encounter
--- OUTSIDE RECORDS SUMMARY | 2024-11-09 12:26 | XMS_ITS | Clinical Summary ---
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 Left: Shoulder [employer] [id number] 05/25/2028 [id number] / / [id number] [employer] 01.56139.042 Ncb Anatomical Shoulder 4.5mm 42mm Inverse Reverse Lock Self Tap - [id number] Implanted:Qty: 1 on 08/10/2018 by Ayo Higgins MD at [facility] Left: Shoulder [employer] [id number] 03/25/2023 01.29981.042 / / [id number] [employer] 01.47907.048 Ncb Anatomical Shoulder 4.5mm 48mm Inverse Reverse Lock Self Tap - [id number] Implanted:Qty: 1 on 08/10/2018 by Ayo Higgins MD at [facility] Left: Shoulder [employer] [id number] 10/23/2022 01.04416.048 / / [id number] [employer] [id number] 36mm Reverse Shoulder Sphere Glenoid Trabecular Metal - [id number] Implanted:Qty: 1 on 08/10/2018 by Ayo Higgins MD at [facility] Left: Shoulder [employer] [id number] 03/25/2028 [id number] / / [id number] [employer] [id number] 14mm 130mm Shoulder Stem Humeral Trabecular Metal Tivanium - [id number] Implanted:Qty: 1 on 08/10/2018 by Ayo Higgins MD at [facility] Left: Shoulder [employer] [id number] 05/25/2028 [id number] / / [id number] [employer] [id number] 36mm Reverse Humerus 7d +6mm Offset Standard Liner Shoulder - [id number] Implanted:Qty: 1 on 08/10/2018 by Ayo Higgins MD at [facility] Left: Shoulder [employer] [id number] 03/25/2026 [id number] / / [id number] [facility] [place] A[place] AETNA [facility] HMO Advance Directives For more information, please contact: [phone] * Full Code (Latest Code Status on File) Date Activated Date Inactivated Comments 08/10/2018 2:34 PM 08/11/2018 4:38 PM Care Teams Subway Guard Relationship Specialty Start Date End Date Solis Nixon MD [address] [facility] [address] [place] [address] PCP - General 09/16/16
--- OUTSIDE RECORDS SUMMARY | 2024-11-09 12:26 | XMS_ITS | Clinical Summary ---
Author Organization [facility] Address [address] [facility] [place] [address] Care Team Providers Care Nursing Professor Name Role Phone Juan Sanford MD Primary Care Provider [phone] Allergies Active Allergy Reactions Criticality Noted Date Comments Crispinclark Mounachristophe High 09/01/2017 Medications CIALIS 20 mg tablet [...] 6 9 Active fluticasone (FLONASE) 50 mcg/spray [place], Suspension SPRAY TWICE INTO EACH NOSTRIL QD 6 9 Active citalopram (CeleXA) 20 mg tablet Take 20 mg by mouth daily at bedtime. Active meloxicam (MOBIC) 15 mg tablet Take 1 Tablet by mouth daily. 5 Active lisinopriL (PRINIVIL) 20 mg tablet Take 20 mg by mouth 2 times daily. Active Active Problems Problem Noted Date Diagnosed Date Hereditary hemochromatosis 09/08/2017 Resolved Problems Problem Noted Date Diagnosed Date Resolved Date Elevated ferritin 09/01/2017 09/08/2017 Encounters Date Type Department Care Team Description 11/05/2024 10:00 AM CDT Office Visit [facility] Oncology and Hematology - [place] [address] [place] [address] Dipak Farrar MD Hereditary hemochromatosis (Primary Dx) 11/03/2024 Orders Only [facility] Oncology and Hematology - [place] [address] [place] [address] Dipak Farrar MD 11/02/2024 Orders Only [facility] Oncology and Hematology - [place] [address] [place] [address] Dipak Farrar MD from Last 3 Months Family History Medical History Relation Name Comments [...] Sign Reading Time Taken Comments Blood Pressure 140/81 11/05/2024 10:02 AM CDT Pulse 74 11/05/2024 10:02 AM CDT Temperature 36.4 C (97.5 F) 11/05/2024 10:02 AM CDT Respiratory Rate 15 11/05/2024 10:0 2 AM CDT Oxygen Saturation 97% 11/05/2024 10: 02 AM CDT Inhaled Oxygen Concentration - - Weight 102.2 kg (225 lb 6.4 oz) 025 10:02 AM CDT Height 195.6 cm (6' 5) 11/06/2021 11:2 3 AM CDT Body Mass Index 26.73 11/06/2021 11:23 AM CDT Plan of Treatment Upcoming Encounters Date Type Department Care Team (Late st Contact Info) Description 11/07/2025 10:00 AM CDT Office Visit [facility] Oncology and Hematology [facility] [address] [facility] [address] [place] [address] Dipak Farrar MD [address] [facility] [address] [place] [address] Health Maintenance Due Date Last Done Comments Pre-Diabetes and Diabetes Screening 1955 DTAP/TDAP/TD VACCINES (1 - Tdap) 02/27/1976 PNEUMOCOCCAL VACCINE 50+ YEA RS (1 of 2 - PCV) 02/27/1976 COLORECTAL SCREENING 2002 Colorectal Cancer Screening 2002 FIT-DNA Q 3 years 2002 FIT/FOBT Q 1 year 2002 Flex Sig/CT Colonography Q 5 years 2002 ZOSTER VACCINE (1 of 2) 2007 Abdominal Aortic Aneurysm (AAA) Screening 2022 INFLUENZA VACCINE (#1) 2023 02/27/2021 COVID-19 Vaccine (3 - 2023- season) 2024, 07/13/2020 RSV VACCINE (60+ or ) (1 - 1-dose 75+ series) 02/27/2032 Procedures Procedure Name Priority Date/Time Associated Diagnosis Comments CBC WITH AUTODIFFERENTIAL Routine 2024 1:20 PM CDT COMPREHENSIVE METABOLIC PANEL Routine 11/02/2024 10:02 AM CDT from Last 3 Months Results * CBC WITH AUTODIFFERENTIAL (11/02/2024 1:20 PM CDT) Blood us Dipak Farrar MD HEMATOLOGY ORDERABLES Final Res ult * COMPREHENSIVE METABOLIC PANEL (11/02/2024 10:02 AM CDT) Blood Dipak Farrar MD CHEMISTRY ORDERABLES Final Resu lt from Last [address] [place] [address] [address] Care Teams Nursing Professor Relationship Specialty Start Date End Date Juan Sanford MD PCP - General Family Practice 11/05/22
--- OUTSIDE RECORDS SUMMARY | 2024-11-09 12:26 | XMS_ITS | Referral Summary ---
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 Indications: Deficiency of a Substance [...] (07/13/2018): Added automatically from request for surgery [id number] Social History Tobacco Use Types Packs/Day Years Used Date Smoking Tobacco: Former Smokeless Tobacco: Never Comments:cigars not since oc Alcohol Use Standard Drinks/Week Comments Yes 0 (1 standard drink = 0.6 oz pur e alcohol) rare Sex and Gender Information Value Date Recorded Sex Assigned at Not on file 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 Gender Identity Not on file Sexual Orientation [...] on file Medical Devices Implanted Type Area Shipyard Painter Apprentice Device Identifier Shelf Expiration Date Model / Serial / Lot [employer] [id number] 25mm Reverse Shoulder Baseplate Glenoid Trabecular Metal - [id number] Implanted:Qty: 1 on 08/10/2018 by Ayo Higgins MD at [facility] Left: Shoulder [employer] [id number] 05/25/2028 [id number] / / [id number] [employer] .[id number] Ncb Anatomical Shoulder 4.5mm 42mm Inverse Reverse Lock Self Tap - [id number] Implanted:Qty: 1 on 08/10/2018 by Ayo Higgins MD at [facility] Left: Shoulder [employer] [id number] 03/25/2023.91667.042 / / [id number] [employer] 01.00419.048 Ncb Anatomical Shoulder 4.5mm 48mm Inverse Reverse Lock Self Tap - [id number] Implanted:Qty: 1 on 08/10/2018 by Ayo Higgins MD at [facility] Left: Shoulder [employer] [id number] 10/23/2022.17214.048 / / [id number] [employer] [id number] 36mm Reverse Shoulder Sphere Glenoid Trabecular Metal - [id number] Implanted:Qty: 1 on 08/10/2018 by Ayo Higgins MD at [facility] Left: Shoulder [employer] [id number] 03/25/2028 [id number] / / [id number] [employer] [id number] 14mm 130mm Shoulder Stem Humeral Trabecular Metal Tivanium - [id number] Implanted:Qty: 1 on 08/10/2018 by Ayo Higgins MD at [facility] Left: Shoulder [employer] [id number] 05/25/2028 [id number] / / [id number] [employer] [id number] 36mm Reverse Humerus 7d +6mm Offset Standard Liner Shoulder - [id number] Implanted:Qty: 1 on 08/10/2018 by Ayo Higgins MD at [facility] Left: Shoulder [employer] [id number] 03/25/2026 [id number] / / [id number] [facility] [place]ETNA [place] PREFERRED [facility] Advance Directives For more information, please contact: [phone] * Full Code (Latest Code Status on File) Date Activated Date Inactivated Comments 08/10/2018 2:34 PM 08/11/2018 4:38 PM Care Teams Planer Feeder Relationship Specialty Start Date End Date Solis Nixon MD [address] [facility] [place] [address] [place] [address] [facility] - General 09/16/16
--- OUTSIDE RECORDS SUMMARY | 2024-11-09 12:26 | XMS_ITS | Data Portability ---
Author Organization [facility] [employer] [facility], Main Office Address [address] [place] [address] Care Team Providers Care Scratch Polisher Name Role Phone MAGNO ORTIZ Primary Care Provider MAGNO ORTIZ Referring Provider [phone] Assessment Encounter Date Assessment Date Assessment LastModified by Organization Details LastModified Time 10/11/2024 10/11/2024 This note is dictated and transcribed by [employer]. [employer] Operator variances may occur. Despite proofreading, typographical errors may occur. Occasional wrong-word or 'oyiwl-q-cffl' substitutions may have occurred due to the [...] By Organization Details Last Modified Time 10/11/2024 [id number] plantar fasciitis: exercises [email or web address] Not available 10/11/2024 11:19:47 plantar fasciiti s education [email or web address] Not available 10/11/2024 11:19:47 nonsteroidal anti-inflammatory drugs (nsaids): care instructions [email or web address] Not available 10/11/2024 11:19:47 Reason for Referral None Reported. Problems Name Problem SNOMED Code Status Onset Date Resolution Date Notes Provider Name and Address Organization Details Recorded Time Plantar fasciitis of right foot 45483766445155 101 Active 2024 Salty Eduardo DPM [address] [facility], [facility] [address], [place], [address], [place] [employer] 5 11:18:19 Pain in right heel [id number] 05 Active 2024 Salty Eduardo DPM [address], [address], [place], [address], [place] 5 11:18:25 Problem Notes None recorded. Procedures Surgical History Date Name Laterality Status Provider Name and Address Organization Details Recorded Time Plantar Fascia Injection Right Foot completed Salty Eduardo DPM [address], [address], [place], [address], [employer] 10/11/2024 11:17:06 total shoulder replacement completed Mojgan Rosenthal [facility] [employer] [facility] 10/11/2024 11:09:19 Imaging Results None recorded. Procedure Notes None recorded. Medical Equipment None Reported. Allergies Allergen ID Allergen Name Allergen Category Reaction Reaction Severity Criticality Documentation Date Start Date Code Code System Note Provider Name and Address Organization Details Recorded Time 32528 codeine medicatio n Not available Not available Not available 10/11/2024 2670 RxNorm Mojgan Rosenthal null, [facility] [employer] [facility] 5 11:04:50 Medications Name Sig Start [...] % 98 % 193.04 cm 27.4 kg/m2 027490. 28 g 113 mm[Hg] 74 mm[Hg] Mojgan FUENTES [place] [employer] [facility] 5 10:27:56 Social History Question Answer Notes LastModified by [employer] Details LastModified Time What Is Your Level [...] Functional Status Question Answer Note LastModified by [employer] Details LastModified Time Do you use any [...] SNOMED-CT Code Diagnosis ICD10 Code Diagnosis Note [id number] Salty Eduardo DPM [facility] [address] [place] [address] 10/11/2024 10:20:53 10/12/2024 09:23:49 Plantar fasciitis of right foot [id number] M72.2 recommend [employer] orthoticsC ontinue supportive shoe gearRice therapyIci ng and stretching reviewedRi ght heel injection 10/11/2024 - monitor for signs of infection at present seek medical attention immediatel yFollow-up as needed Pain in right heel 36552 67677 791426 M79.671 as abovemay continue meloxicam, monitor for GI upset if occurs discontinu e medication immediatel y Health Concerns Section Related Observation LastModified by Organization Detai ls LastModified Time None Recorded Concern Status LastModified by Organization Details LastModified Time None Recorded Advance Directives Directive None Recorded Payers Insurance Date Sequence Insurance Name Policy Number Policy Oshea Covered Member ID Oshea Member ID Guarantor Name 10/11/2024 1 [employer] (MEDICARE REPLACEMENT /ADVANTAGE - PPO) [id number] 1 Carlos Saltsgaver [id number] Carlos Saltsgaver Notes Date Note Type Note Provider Name [...] denies any other complaints. Salty Eduardo DPM [address] [place] [address], [place], [address], [place] - [facility] [employer] 10/11/2024 11:20:17
[2024-11-09 12:37] LABS: Alanine Aminotransferase 21 U/L (6-50); Albumin Level 4.3 g/dL (3.5-5.1); Alkaline Phosphatase 67 U/L (38-126); Anion Gap 8 mmol/L (4-12); Aspartate Amino Transferase 31 U/L (17-59); Bilirubin,Total 0.6 mg/dL (0.2-1.3); Blood Urea Nitrogen 15 mg/dL (9-20); Calcium 9.1 mg/dL (8.4-10.2); Carbon Dioxide 27 mmol/L (22-30); Chloride 102 mmol/L (98-107); Estimated Glomerular Filt Rate > 60; Glucose 94 mg/dL (65-110); Potassium 4.4 mmol/L (3.4-5.0); Sodium 137 mmol/L (137-145); Total Protein 7.4 g/dL (6.3-8.2)
[2024-11-09 13:07] LABS: Prostate Specific Antigen 0.8 ng/mL (< OR = 4.0)
== END 2024-11-09 11:24 | disposition home or self-care (01) ==
PROVIDERS: PCP Family Medicine; Visit Provider Family Medicine
DX: F41.9 Anxiety disorder, unspecified (principal); F32.9 Major depressive disorder, single episode, unspecified; I10 Essential (primary) hypertension; E78.2 Mixed hyperlipidemia; E34.9 Endocrine disorder, unspecified; R97.20 Elevated prostate specific antigen [PSA]; Z12.5 Encounter for screening for malignant neoplasm of prostate
CPT/HCPCS: 36415; 80053; 84153; 85027; G0103